=== PATIENT | female | born 1980 | race Two or more races ===

== ENCOUNTER 2023-03-23 03:04 | Emergency (ER) | payer OTHER, SELFPAY ==
[2023-03-23 03:37] VITALS: BP 98/55; PULSE 69; RESP 16; TEMP 36.4; O2SAT 99; BMI 42.1
[2023-03-23 03:38] LABS: Hematocrit 36.4 % (37.0-47.0); Mean Corpuscular Hemoglobin 28.6 pg (27.0-33.0); Mean Corpuscular Volume 86.9 fL (80.0-98.0); Platelet Count 221 X10*3/uL (160-400); Red Blood Count 4.19 X10*6/uL (4.20-5.50); White Blood Count 6.6 X10*3/uL (4.8-10.8)
[2023-03-23 03:45] LABS: Appearance Urine Clear; Color Urine Dark Yellow; Glucose Urine UA Negative (Negative); Leukocyte Esterase Urine Small (1+) (Negative); Nitrite Urine Negative (Negative); PH 5.5 (5.0-9.0); Specific Gravity - Urine >= 1.030 (1.005-1.025); UMIC TRIGGER UACC YES; Urine Blood Negative (Negative); Urine Ketones Trace mg/dL (Negative); Urine Protein Trace mg/dL (Neg-Trace)
[2023-03-23 03:52] LABS: Alanine Aminotransferase 15 U/L (0-31); Albumin Level 3.8 g/dL (3.5-5.0); Alkaline Phosphatase 90 U/L (39-117); Anion Gap 10 (12-20); Aspartate Amino Transferase 17 U/L (5-31); Bilirubin Total 0.2 mg/dL (0.0-1.0); Blood Urea Nitrogen 16 mg/dL (9-16); Calcium 8.7 mg/dL (8.4-10.2); Carbon Dioxide 22 mmol/L (22-29); Chloride 111 mmol/L (96-108); Creatinine Clr Calc Pharmacy 135.7; Estimated Glomerular Filt Rate > 60; Glucose Random 80 mg/dL (60-115); Lipase 21 U/L (8-78); Potassium 4.1 mmol/L (3.3-5.1); Sodium 139 mmol/L (135-145); Total Protein 6.5 g/dL (6.5-8.0)
[2023-03-23 04:10] LABS: Bacteria Urine None Seen (None Seen); Hyaline Casts Urine 0-2 /LPF (0-2); RBC Urine 0-2 /HPF (0-2); Squamous Epithelial Cell Urine 0-2 /HPF (0-2); UACC Culture Trigger YES; WBC Urine 0-5 /HPF (0-5)
--- OUTSIDE RECORDS SUMMARY | 2023-03-23 05:59 | XMS_ITS | Continuity of Care Document ---
Author Name Unknown Organization [facility] Address [address] [facility], [address] Floor, [address] [place] [address]- Care Team Providers Care Receptionist Clerk Name Role Phone Wil CASTREJON, Dante Robbins Primary Care Physician Encounter [facility] [place] Date(s): 02/08/22 - 03/10/22 [facility] [address], [address], [address] [place] [address]- Attending Physician: Flory Benson Admitting Physician: AdmtrFlory Referring Physician: Admtr, Ar8 Allergies, Adverse Reactions, Alerts Substance Reaction Severity Status Moderna COVID-19 Vaccine PF Active Medications albuterol 90 mcg/inh inhalation powder 2 puffs, Inhalation, Every 4 hours, PRN as needed, # 1 each, 0 Refills, Maintenance, 05/31/18 2:39:02 EST, Powder Start Date: 05/31/18 Status: Ordered Omeprazole By Mouth, Daily, 0 Refills, Maintenance, 10/05/20 7:11:00 EDT, Partial fill upon patient request ifthe prescription is for a schedule II opioid drug. Start Date: 10/05/20 Status: Ordered Topamax 25 mg oral tablet 3 tablet = 75 mg, By Mouth, 2 times a day, # 180 tablet, 5 Refills, Maintenance, 09/24/21 13:21:00 EDT, [id number], Partial fill upon patient request if the prescription is for a schedule II opioid drug., 168, cm, 09/24/21 12:49:00 ED... Start Date: 09/24/21 Stop Date: 03/23/22 Status: Ordered Wellbutrin By Mouth, 0 Refills, Maintenance, 10/05/20 7:11:00 EDT, Partial fill upon patient request if the prescription is for a schedule II opioid drug. Start Date: 10/05/20 Status: Ordered Problem List Condition Effective Dates Status Health Status Inform ant Severe obesity(Confirmed) Active Care Team Personnel Name: Wil CASTREJON , Dante Robbins Address: [address] [place] [id number] [place]
--- OUTSIDE RECORDS SUMMARY | 2023-03-23 05:59 | XMS_ITS | Continuity of Care Document ---
Author Name Unknown Organization [facility] Address Unknown Care Team Providers Care Commercial Tire Service Technician Name Role Phone Wil CASTREJON, Dante Robbins Primary Care Physician [id number] Date(s): 05/29/21 - 06/28/21 [facility] Allergies, Adverse Reactions, Alerts No Known Medication Allergies Substance Reaction Severity Status NKA Active Medications albuterol 90 mcg/inh inhalation powder 2 puffs, Inhalation, Every 4 hours, PRN as needed, # 1 each, 0 Refills, Maintenance, 05/31/18 2:39:02 EST, Powder Start Date: 05/31/18 Status: Ordered Fioricet Tablet 2 tablet, By Mouth, Every 4 hours, PRN Headache, 0 Refills, Maintenance, Tablet Start Date: 03/01/11 Status: Ordered Klonopin 2 mg oral tablet 1 tablet, By Mouth, 3 times a day, 0 Refills, Maintenance, Tablet Start Date: 03/01/11 Status: Ordered ofloxacin 0.3% otic solution See Instructions, 5 drops Ears, affected ear, 2 times a day 7 days, # 10 mL, Refills 0, Tot. Refills 0, Acute, 07/01/21 0:41:00 EST, 06/23/21 0:41:00 EST, Instructions Replace Required Details, [facility] Electronically, [facility]... Start Date: 06/23/21 Stop Date: 07/01/21 Status: Ordered ofloxacin 0.3% otic solution 5, drops, Ears, Both, 2 times a day, To affected ear only for 7 days, # 10 mL, Refills 0, Tot. Refills 0, Acute, 06/30/21 0:59:00 EST, 06/23/21 0:59:00 EST, Route to Pharmacy Electronically, [facility] #[id number] Solution, Partial fill upon pat... Start Date: 06/23/21 Stop Date: 06/30/21 Status: Ordered Omeprazole By Mouth, Daily, 0 Refills, Maintenance, 10/05/20 7:11:00 EDT, Partial fill upon patient request ifthe prescription is for a schedule II opioid drug. Start Date: 10/05/20 Status: Ordered Wellbutrin By Mouth, 0 Refills, Maintenance, 10/05/20 7:11:00 EDT, Partial fill upon patient request if the prescription is for a schedule II opioid drug. Start Date: 10/05/20 Status: Ordered
--- OUTSIDE RECORDS SUMMARY | 2023-03-23 05:59 | XMS_ITS | Continuity of Care Document ---
Author Name Unknown Organization [facility] Address [address] [place] [address]- Care Team Providers Care Personnel Security Specialist Name Role Phone Dante De La Torre MD Primary Care Physician [place] [facility] [place] - 09/09/[address] [id number] Attending Physician: Flory Benson Admitting Physician: AdmtrFlory Referring Physician: Admtr, Ar8 Allergies, Adverse Reactions, Alerts Substance Reaction Severity Status Moderna COVID-19 Vaccine PF Active Medications albuterol 90 mcg/inh inhalation powder 2 puffs, Inhalation, Every 4 hours, PRN as needed, # 1 each, 0 Refills, Maintenance, 05/31/18 2:39:02 EST, Powder Start Date: 05/31/18 Status: Ordered amitriptyline 10 mg oral tablet 10 mg, 1, tablet, By Mouth, Daily at bedtime, # 30 tablet, Refills 3, Tot. Refills 3, Maintenance, 03/31/22 12:25:00 EDT, Route to Pharmacy Electronically, [facility] #[id number], Partial fill upon patient request if the prescription is for a david... Start Date: 03/31/22 Status: Ordered Omeprazole By Mouth, Daily, 0 Refills, Maintenance, 10/05/20 7:11:00 EDT, Partial fill upon patient request ifthe prescription is for a schedule II opioid drug. Start Date: 10/05/20 Status: Ordered ondansetron 4 mg oral tablet, disintegrating 1 tablet = 4 mg, By Mouth, Every 6 hours, PRN as needed for nausea/vomiting, # 12 tablet, 0 Refills, Maintenance, 08/17/22 11:26:00 EST, DIS Tablet, [facility] #[id number], Partial fill upon patient request if the prescription is for a schedule I... Start Date: 08/17/22 Stop Date: 08/20/22 Status: Ordered SUMAtriptan 50 mg oral tablet 1 tablet = 50 mg, By Mouth, Daily, PRN for migraine headache, may repeat dose after 2 hours up to amaximum of 2, # 9 tablet, 2 Refills, Maintenance, 03/31/22 12:26:00 EDT, Tablet, [email or web address] #[id number], Partial fill upon patient request if the... Start Date: 03/31/22 Status: Ordered Wellbutrin By Mouth, 0 Refills, Maintenance, 10/05/20 7:11:00 EDT, Partial fill upon patient request if the prescription is for a schedule II opioid drug. Start Date: 10/05/20 Status: Ordered Problem List Condition Confirmation Course Effective Dates Status Health St atus Informant Severe obesity Confirmed Active Patient Care team information Care Team Personnel Name: Santo [place] RN Position: Itzel BACA RN Member Role: Primary Care Nurse Name: Wil CASTREJON, Dante Robbins Position: Reference Physician Member Role: PCP Address: Address: [address] [place] [id number]- Care Team Related Persons Name: GERRY QUINTERO Address: [place] [address] Name: JAGDISH GAN Address: home [address] [place] [address] Name: EMORY RUDOLPH Address: home [address] [place] [address]
--- OUTSIDE RECORDS SUMMARY | 2023-03-23 05:59 | XMS_ITS | Continuity of Care Document ---
Author Name Unknown Organization [facility] ter Address [address] [place] [address]- Care Team Providers Care Drive Worker Name Role Phone Not on Staff, PCP Primary Care Physician Unavail able [place] [facility] [place](s): 03/30/20 - 03/30/[address] [address]- [facility] Discharge Disposition: A-D/C Home Attending Physician: Dann Simpson DO Admitting Physician: Dann Simpson DO Referring Physician: Not on Staff, Referring MD Allergies, Adverse Reactions, Alerts No Known Medication Allergies Medications No Known Medications Results Radiology Reports * Exam Date Time Procedure Performing Provider Status 03/30/20 10:15 PM Ankle Min 3 Views Right Sridhar , Cathryn xa; Auth (Verified) Notes: (Ankle Min 3 Views Right) Reason For Exam: Pain RESULT: Ankle Min 3 Views Right Ankle Min 3 Views Right Hx of Present Illness: Pain after fall. COMPARISON: None. FINDINGS: No evidence of acute or healing fracture or bone lesion. Intact ankle mortise and talar dome. Prominent plantar calcaneal spur. Enthesopathy at the Achilles insertion. Diffuse soft tissue swelling overlying the lower extremity. IMPRESSION: No acute osseous abnormality. I have personally reviewed the images and I agree with this report. WSN: [id number] Ordering Physician: Kwaku Wilson Dictated By: Maverick Hdz DO Dictated Date/Time: 03/30/20 10:26 p Reviewed By: Alexander Castillo MD Signed By: Alexander Castillo MD Signed Date/Time: 03/30/20 10:31 pm Transcribed By: NAHUN Transcribed Date/Time: 03/30/20 10:22 pm Vital Signs Most recent to oldest [Reference Range]: 1 2 3 Oxygen Saturation [94-100 %] 100 % (03/30/20 11:30 PM) 100 % (03/30/20 9:07 PM) 99 % (03/30/20 8:52 PM) Pulse Rate [55-90 bpm] 63 bpm (03/30/20 11:30 PM) 78 bpm (03/30/20 9:07 PM) 78 bpm (03/30/20 8:52 PM) Blood Pressure [90-138/55-84 mm Hg] 106/54mm Hg (03/30/20 11:30 PM) 98/59mm Hg (03/30/20 9:07 PM) Respiratory Rate [16-30 br/min] 18 br/min (03/30/20 11:30 PM) 18 br/min (03/30/20 9:07 PM) Temperature [96.8-100.4 DegF] 98.0 DegF (03/30/20 11:30 PM) 98 DegF (03/30/20 9:07 PM) Mode of Delivery (Oxygen) Room air (03/30/20 11:30 PM) Room air (03/30/20 9:07 PM) Room air (03/30/20 8:52 PM) Blood pressure sites Arm, left (03/30/20 11:30 PM) Arm, right (03/30/20 9:07 PM) Temperature Route Oral (03/30/20 11:30 PM) Oral (03/30/20 9:07 PM) Dry Weight 117.5 kg (03/30/20 9:07 PM) Weight Obtained Via UTO (03/30/20 8:56 PM) Dry Weight Obtained Via Standing scale (03/30/20 9:07 PM) UTO (03/30/20 8:56 PM)
--- OUTSIDE RECORDS SUMMARY | 2023-03-23 05:59 | XMS_ITS | Continuity of Care Document ---
Author Name Unknown Organization [facility] ter Address [address] [place] [address]- Care Team Providers Care Electric Motor And Generator Assembler Name Role Phone Wil CASTREJON, Dante Robbins Primary Care Physician Encounter [facility] [place] Date(s): 01/29/21 - 01/29/[address] [address]- Discharge Disposition: A-D/C Walkout Attending Physician: Asim Johnson MD Admitting Physician: Asim Johnson MD Referring Physician: Not on Staff, Referring MD [...] Maintenance, Tablet Start Date: 03/01/11 Status: Ordered Omeprazole By Mouth, Daily, 0 Refills, Maintenance, 10/05/20 7:11:00 EDT, Partial fill upon patient request ifthe prescription is for a schedule II opioid drug. Start Date: 10/05/20 Status: Ordered Wellbutrin By Mouth, 0 Refills, Maintenance, 10/05/20 7:11:00 EDT, Partial fill upon patient request if the prescription is for a schedule II opioid drug. Start Date: 10/05/20 Status: Ordered Results Radiology Reports * Exam Date Time Procedure Performing Provider Status 01/29/21 7:52 AM Chest 2 Views Frontal and Lat Laverne Villa; Auth (Verified) Notes: (Chest 2 Views Frontal and Lat) Reason For Exam: Chest Pain;Other: RESULT: Chest 2 Views Frontal and Lat Chest 2 Views Frontal and Lat Hx of Present Illness: intermittent stabbing cp to L side of chest, L facial tingling for 1 hour; Reason: Other:; Chest Pain; Clinical Question(s): Other: COMPARISON: Chest radiograph dated 06/20/2020 FINDINGS: LINES AND TUBES: None. LUNGS AND PLEURA: Clear lungs. Normal pulmonary vascularity. No pleural effusion. No pneumothorax. HEART, MEDIASTINUM AND RENATO: Heart is normal in size. Normal upper mediastinal and hilar contour. BONES AND SOFT TISSUES: No acute abnormality. IMPRESSION: No acute abnormality. WSN: [id number] Ordering Physician: Mikala Young Dictated By: Annette Flores MD Dictated Date/Time: 01/29/21 7:56 am Reviewed By: Annette Flores MD Signed By: Annette Flores MD Signed Date/Time: 01/29/21 7:56 am Transcribed By: NAHUN Transcribed Date/Time: 01/29/21 7:55 am Vital Signs Most recent to oldest [Reference Range]: 1 2 Oxygen Saturation [94-100 %] 99 % (01/29/21 8:03 AM) 100 % (01/29/21 7:37 AM) Pulse Rate [55-90 bpm] 73 bpm (01/29/21 8:03 AM) 82 bpm (01/29/21 7:37 AM) Blood Pressure [90-138/55-84 mm Hg] 107/ 62mm Hg (01/29/21 8:03 AM) Respiratory Rate [16-30 br/min] 12 br/mi n *L* (01/29/21 8:03 AM) Temperature [96.8-100.4 DegF] 98.2 DegF (01/29/21 8:03 AM) Mode of Delivery (Oxygen) Room air (01/29/21 8:03 AM) Room air (01/29/21 7:37 AM) Blood pressure sites Arm, right (01/29/21 8:03 AM) Temperature Route Oral (01/29/21 8:03 AM)
--- OUTSIDE RECORDS SUMMARY | 2023-03-23 05:59 | XMS_ITS | Continuity of Care Document ---
Author Name Unknown Organization [facility] Address Unknown Care Team Providers Care Phlebotomist Associate Name Role Phone Wil CASTREJON, Dante Robbins Primary Care Physician [place] [facility] [place](s): 10/07/21 - 11/06/21 [facility] Allergies, Adverse Reactions, Alerts No Known Allergies Medications albuterol 90 mcg/inh inhalation powder 2 [...] tablet, 5 Refills, Maintenance, 09/24/21 13:21:00 EDT, [facility] #[id number], Partial fill upon patient request if the [...]
--- OUTSIDE RECORDS SUMMARY | 2023-03-23 05:59 | XMS_ITS | Continuity of Care Document ---
Author Name Unknown Organization [facility] ter Address [address] [place] [address]- Care Team Providers Care Automotive Sales Manager Name Role Phone Wil CASTREJON, Dante Robbins Primary Care Physician Encounter [facility] [place] Date(s): 10/05/20 - 10/06/[address] [address] Discharge Disposition: A-D/C Home Attending Physician: Shirley Daniel DO Admitting Physician: Tristin Mosqueda MD Referring Physician: Not on Staff, Referring [...] opioid drug. Start Date: 10/05/20 Status: Ordered Vital Signs Most recent to oldest [Reference Range]: 1 2 3 Height 168 cm (10/06/20 6:33 AM) 168 cm (10/06/20 4:34 AM) 168 cm (10/05/20 10:04 PM) Weight 117 kg (10/05/20 10:04 PM) Oxygen Saturation [94-100 %] 99 % (10/06/20 6:33 AM) 98 % (10/06/20 4:34 AM) 97 % (10/05/20 9:29 PM) Pulse Rate [55-90 bpm] 80 bpm (10/06/20 6:33 AM) 68 bpm (10/06/20 4:34 AM) 60 bpm (10/05/20 9:29 PM) Body Mass Index [18.5-24.99] 41.45 *>HHI* (10/05/20 10:04 PM) Blood Pressure [90-138/55-84 mm Hg] 102/62mm Hg (10/06/20 6:33 AM) 121/68mm Hg (10/06/20 4:34 AM) 115/60mm Hg (10/05/20 9:29 PM) Respiratory Rate [16-30 br/min] 19 br/min (10/06/20 7:58 AM) 19 br/min (10/06/20 6:33 AM) 20 br/min (10/06/20 4:34 AM) Temperature [96.8-100.4 DegF] 98.7 DegF (10/06/20 6:33 AM) 98.0 DegF (10/06/20 4:34 AM) 98.1 DegF (10/05/20 9:29 PM) Mode of Delivery (Oxygen) Room air (10/06/20 6:33 AM) Room air (10/06/20 4:34 AM) Room air (10/05/20 9:29 PM) Blood pressure sites Arm, left (10/06/20 6:33 AM) Arm, left (10/06/20 4:34 AM) Arm, left (10/05/20 9:29 PM) Temperature Route Oral (10/06/20 6:33 AM) Oral (10/06/20 4:34 AM) Oral (10/05/20 9:29 PM) Dry Weight 117 kg (10/05/20 10:04 PM) Weight Obtained Via Patient/family state d (10/05/20 10:04 PM) Dry Weight Obtained Via Patient/family s tated (10/05/20 10:04 PM)
--- OUTSIDE RECORDS SUMMARY | 2023-03-23 05:59 | XMS_ITS | Continuity of Care Document ---
Author Name Unknown Organization [facility] ter Address [address] [place] [address]- Care Team Providers Care Parts Administrator Name Role Phone Wil CASTREJON, Dante Robbins Primary Care Physician Encounter [facility] Date(s): 08/17/22 - 08/17/[address] [address]- Encounter Diagnosis Gastritis(Final) - 08/17/22 Discharge Disposition: A-D/C Home Attending Physician: Abhijit Maldonado MD Admitting Physician: Abhijit Maldonado MD Referring Physician: Not on Staff, Referring MD Allergies, Adverse Reactions, Alerts Substance Reaction Severity [...] 03/31/22 12:25:00 EDT, Route to Pharmacy Electronically, [facility] #[id number], Partial fill upon patient request if the [...] Refills, Maintenance, 08/17/22 11:26:00 EST, DIS Tablet, [facility] #[id number], Partial fill upon patient request if the prescription is for a schedule I... Start Date: 08/17/22 Stop Date: 08/20/22 Status: Ordered SUMAtriptan 50 mg oral tablet 1 tablet = 50 mg, By Mouth, Daily, PRN for migraine headache, may repeat dose after 2 hours up to amaximum of 2, # 9 tablet, 2 Refills, Maintenance, 03/31/22 12:26:00 EDT, Tablet, [facility] #[id number], Partial fill upon patient request if the... Start Date: 03/31/22 Status: Ordered Wellbutrin By Mouth, 0 Refills, Maintenance, 10/05/20 7:11:00 EDT, Partial fill upon patient request if the prescription is for a schedule II opioid drug. Start Date: 10/05/20 Status: Ordered Problem List Condition Confirmation Course Effective Dates Status Health St atus Informant Severe obesity Confirmed Active Results Radiology Reports * Exam Date Time Procedure Performing Provider Status 08/17/22 10:57 AM US RUQ Lexi Link; Auth ( Verified) Notes: (US RUQ) Reason For Exam: Abdominal Pain;Other: RESULT: US RUQ US RUQ Hx of Present Illness: epigastric pain x 2 hours with N V. no relief from Omeprazole or drinking milk; Reason: Other:; Abdominal Pain; Clinical Question(s): Cholecystitis COMPARISON: Ultrasound 02/20/2022, CT abdomen and pelvis 02/20/2022 FINDINGS: Liver: Diffusely mild echogenic parenchyma. A 1.4 x 1.3 x 0.9 cm simple cyst noted in the right lobe. Few additional subcentimeter cystic lesion noted. Smooth hepatic contour. Main portal vein patentwith normal hepatopetal direction of flow. Gallbladder: Contracted gallbladder, limits assessment. No gallstones. Normal wall thickness. A 0.1cm echogenic focus with a comet tail artifact, most likely representing a focal adenomyoma. No pericholecystic fluid. Negative Robles sign. Biliary Tree: No intrahepatic or extrahepatic bile duct dilation is identified. Common duct measures: 0.4 cm. Pancreas: No abnormality in the visualized portions of the pancreas. Right kidney: 11.2 cm in length. Normal parenchymal echotexture and thickness. No hydronephrosis, stone or mass. IMPRESSION: 1. Contracted gallbladder, with the focus of echogenicity with comet tail artifact, consistent withminimal adenomyomatosis. No evidence of gallstone or cholecystitis. 2. Mildly echogenic liver likely representing hepatic steatosis. 3. A 1.4 cm simple cyst in the right liver lobe. I have personally reviewed the images and I agree with this report. WSN: [id number] Ordering Physician: Abhijit Maldonado Dictated By: Ashu Elaine MD Dictated Date/Time: 08/17/22 11:11 a Reviewed By: Santo Howell MD Signed By: Santo Howell MD Signed Date/Time: 08/17/22 11:16 am Transcribed By: NAHUN Transcribed Date/Time: 08/17/22 11:07 am Vital Signs Most recent to oldest [Reference Range]: 1 2 3 Oxygen Saturation [94-100 %] 98 % (08/17/22 12:12 PM) 99 % (08/17/22 7:46 AM) 98 % (08/17/22 7:32 AM) Pulse Rate [55-90 bpm] 70 bpm (08/17/22 12:12 PM) 65 bpm (08/17/22 7:46 AM) 79 bpm (08/17/22 7:32 AM) Blood Pressure [90-138/55-84 mm Hg] 107/73mm Hg (08/17/22 12:12 PM) 110/47mm Hg (08/17/22 7:46 AM) Respiratory Rate [16-30 br/min] 18 br/min (08/17/22 12:12 PM) 18 br/min (08/17/22 7:46 AM) Temperature [96.8-100.4 DegF] 97.5 DegF (08/17/22 12:12 PM) 97.7 DegF (08/17/22 7:46 AM) Mode of Delivery (Oxygen) Room air (08/17/22 12:12 PM) Room air (08/17/22 7:46 AM) Room air (08/17/22 7:32 AM) Temperature Route Oral (08/17/22 12:12 PM) Oral (08/17/22 7:46 AM) EKG study * Event Display: ECG 12-Lead Authored Date: Please click on pdf link to open report * Event Display: ECG 12-Lead Authored Date: Ventricular Rate: 67 BPM Atrial Rate: 67 BPM P-R Interval: 146 ms QRS Duration: 92 ms Q-T Interval: 404 ms QTC Calculation(Bazett): 426 ms P [place]: 25 degrees R [place]: 23 degrees T [place]: 35 degrees Normal sinus rhythm Normal ECG When compared with ECG of 20-FEB-2022 04:13, No significant change was found Confirmed by MINDY ELDER MD ([id number]) on 08/17/2022 9:13:47 AM [place]: MINDY ELDER MD Note * Abhijit Maldonado MD: PERFORM Event Display: Patient Education Leaflets Authored Date: Gastritis or Ulcer, No Antibiotic Treatment ?? [id number] Gastritis or Ulcer, No Antibiotic Treatment Gastritis??is irritation and inflammation of the stomach lining. This means the lining is red and swollen. It can cause shallow sores in the stomach lining called erosions. An??ulcer??is a deeper open sore in the lining of the stomach. It may also occur in the first part of the small intestine (duodenum).??The causes and symptoms of gastritis and ulcers are very similar. Causes and risk factors for both problems can include: ??? Long-term use of nonsteroidal anti-inflammatory drugs (NSAIDs) such as aspirin and ibuprofen ??? H. pylori??bacteria infection ??? Tobacco use ??? Alcohol use ??? Certain other conditions such asimmune disorders, certain medicines such as high-dose iron supplements, and street drugs such as cocaine Symptoms for both problems can include: ??? Dull or burning pain in the upper part of the belly ??? Loss of appetite ??? Heartburn or upsetstomach ??? Frequent burping ??? Bloated feeling ??? Nausea with or without vomiting You likely had an assessment to help find the exact cause and extent of your problem. This may haveincluded a health history, exam, and certain tests. Results showed that your problem is not from ??H. pylori??infection. For this reason, you don't need antibiotics as part of your treatment. Whether your problem is gastritis or an ulcer, you will still need to take other medicines. You will also need to follow instructions to help reduce stomach irritation so your stomach can heal.?? Home care ??? Take any medicines you???re prescribed exactly as directed. Common medicines used to treat gastritis include: o Antacids.??These help neutralize the normal acids in your stomach. o Proton pump inhibitors.??These block your stomach from making any acid. o H2??blockers. These reduce theamount of acid your stomach makes. o Bismuth subsalicylate.??This helps protect the lining of your stomach from acid. ??? Don't take any NSAIDs during your treatment. If you take NSAID to help treat other health problems, tell your healthcare provider. They may need to adjust your medicine plan or change the dosage. ??? Don???t use tobacco. Also don???t drink alcohol. These products can increase the amount of acid your stomach makes. This can delay healing. It can also worsen symptoms. ?? Follow-up care Follow up with your healthcare provider, or as advised. In some cases, you may need more tests. ?? When to seek medical advice Call your healthcare provider right away if any of these occur: ??? Fever of 100.4??F (38??C) or higher, or as directed by your healthcare??provider ??? Stomach pain that gets worse or moves to the lower right part of belly ??? Extreme tiredness (fatigue) ??? Weakness or dizziness ??? Continued weight loss ??? Frequent vomiting,??blood in your vomit, or coffee-groundlike substance in your vomit ??? Black, tarry, or bloody stools ??? Symptoms get worse or you have new symptoms ?? Call 911 Call 911??if any of these occur: ??? Chest pain appears or worsens, or spreads to the back, neck, shoulder, or arm ??? Unusually fast heart rate ??? Trouble breathing or swallowing ??? Confusion ??? Extreme drowsiness or trouble waking up ??? Fainting ??? Large amounts of blood present in vomit or stool ?? Last Reviewed Date: 2021 ?? [id number] [employer]. All rights reserved. This information is not intended as a substitute for professional medical care. Always follow your healthcare professional's instructions. ?? * BHSPowerscribe , CIS S: TRANSCRIBE Ashu Elaine MD: Santo Jones MD: VERIFY Event Display: Result: Authored Date: [id number] US RUQ Hx of Present Illness: epigastric pain x 2 hours with N V. no relief from Omeprazole or drinking milk; Reason: Other:; Abdominal Pain; Clinical Question(s): Cholecystitis COMPARISON: Ultrasound 02/20/2022, CT abdomen and pelvis 02/20/2022 FINDINGS: Liver: Diffusely mild echogenic parenchyma. A 1.4 x 1.3 x 0.9 cm simple cyst noted in the right lobe. Few additional subcentimeter cystic lesion noted. Smooth hepatic contour. Main portal vein patentwith normal hepatopetal direction of flow. Gallbladder: Contracted gallbladder, limits assessment. No gallstones. Normal wall thickness. A 0.1cm echogenic focus with a comet tail artifact, most likely representing a focal adenomyoma. No pericholecystic fluid. Negative Robles sign. Biliary Tree: No intrahepatic or extrahepatic bile duct dilation is identified. Common duct measures: 0.4 cm. Pancreas: No abnormality in the visualized portions of the pancreas. Right kidney: 11.2 cm in length. Normal parenchymal echotexture and thickness. No hydronephrosis, stone or mass. IMPRESSION: 1. Contracted gallbladder, with the focus of echogenicity with comet tail artifact, consistent withminimal adenomyomatosis. No evidence of gallstone or cholecystitis. 2. Mildly echogenic liver likely representing hepatic steatosis. 3. A 1.4 cm simple cyst in the right liver lobe. I have personally reviewed the images and I agree with this report. WSN: [id number] Ordering Physician: Abhijit Maldonado Dictated By: Ashu Elaine MD Dictated Date/Time: 08/17/22 11:11 a Reviewed By: Santo Howell MD Signed By: Santo Howell MD Signed Date/Time: 08/17/22 11:16 am Transcribed By: NAHUN Transcribed Date/Time: 08/17/22 11:07 am Patient Care team information Care Team Personnel Name: Santo Louis RN Position: [facility] RN Member Role: Primary Care Nurse Name: Wil CASTREJON , Dante Robbins Position: Reference Physician Member Role: PCP Address: Address: [address] [place] [address]- [place] Name: *[facility], ED Attending Position: [facility] ED Attendings Patient Name: Abhijit Maldonado MD Position: [facility] ED Medicine MD Member Role: Admitting Physician Address: Address: [address] [place] [address] Department of [place] [address]- Name: Jyotsna Oakley RN Position: [facility] ED RN W/OE and Tasks Member Role: Patient Care Provider Name: Lilliana Monroy Position: [facility] ED TA [facility] Member Role: Patient Care Provider Care Team Related Persons Name: GERRY QUINTERO Address: [place] [address] Name: JAGDISH GAN Address: home [address] [place] [address] Name: EMORY RUDOLPH Address: home [address] [place] [address]
--- OUTSIDE RECORDS SUMMARY | 2023-03-23 05:59 | XMS_ITS | Continuity of Care Document ---
Author Name Unknown Organization [facility] Address [address] [place] [address]- Care Team Providers Care Turfgrass Management Professor Name Role Phone Dante De La Torre MD Primary Care Physician Encounter [facility] [place] Date(s): 04/02/22 - 05/08/[address] [address] Attending Physician: Dante De La Torre MD Admitting Physician: Dante De La Torre MD Referring Physician: Dante De La Torre MD Allergies, Adverse Reactions, Alerts Substance Reaction [...] 03/31/22 12:25:00 EDT, Route to Pharmacy Electronically, [facility] #[id number], Partial fill upon patient request if the prescription is for a david... Start Date: 03/31/22 Status: Ordered Omeprazole By Mouth, Daily, 0 Refills, Maintenance, 10/05/20 7:11:00 EDT, Partial fill upon patient request ifthe prescription is for a schedule II opioid drug. Start Date: 10/05/20 Status: Ordered SUMAtriptan 50 mg oral tablet 1 tablet = 50 mg, By Mouth, Daily, PRN for migraine headache, may repeat dose after 2 hours up to amaximum of 2, # 9 tablet, 2 Refills, Maintenance, 03/31/22 12:26:00 EDT, Tablet, [facility] #[id number], Partial fill upon patient request if the... [...] Care team information Care Team Personnel Name: Heriberto COX, Santo Position: [facility] RN Member Role: Primary Care Nurse Name: Wil CASTREJON , Dante Robbins Position: Reference Physician Member Role: PCP Address: Address: [address] [place] [address]- Care Team Related Persons Name: GERRY QUINTERO Address: [place] [address] Name: JAGDISH GAN Address: home [address] [place] [address] Name: EMORY RUDOLPH Address: home [address] [place] [address]
--- OUTSIDE RECORDS SUMMARY | 2023-03-23 05:59 | XMS_ITS | Continuity of Care Document ---
Author Name Unknown Organization [facility] ter Address [address] [place] [address]- Care Team Providers Care Welder Metal [employer] Name Role Phone Wil CASTREJON, Dante Robbins Primary Care Physician Encounter [facility] [place] [facility] Date(s): 12/03/19 - 12/03/[address] [address]- [facility] Encounter Diagnosis Atypical chest pain(Final) - 12/03/19 Discharge Disposition: A-D/C Home Attending Physician: Cathy Manriquez MD Admitting Physician: Cathy Manriquez MD Referring Physician: Not on Staff, Referring MD Allergies, Adverse Reactions, Alerts Substance Reaction Severity Status NKA Active Medications albuterol 90 mcg/inh inhalation powder 2 puffs, Inhalation, Every 4 hours, PRN as needed, # 1 each, 0 Refills, Maintenance, 05/31/18 2:39:02 EST, Powder Start Date: 05/31/18 Status: Ordered Colace sodium 100 mg oral capsule 1 capsule = 100 mg, By Mouth, 2 times a day, PRN for constipation, # 6 capsule, 0 Refills, Maintenance, 01/24/15 22:17:54, Capsule Start Date: 01/24/15 Stop Date: 01/27/15 Status: Ordered Fioricet Tablet 2 tablet, By Mouth, Every 4 hours, PRN Headache, 0 Refills, Maintenance, Tablet Start Date: 03/01/11 Status: Ordered ibuprofen 600 mg oral tablet 1 tablet = 600 mg, By Mouth, 4 times a day, # 20 tablet, 0 Refills, Maintenance Start Date: 05/14/12 Stop Date: 05/19/12 Status: Ordered ibuprofen 600 mg oral tablet 600 mg, 1, tablet, By Mouth, Every 6 to 8 hours, with food or milk, # 24 tablet, Refills 0, Tot. Refills 0, Maintenance, 01/04/18 13:32:39 EDT, Print Requisition Start Date: 01/04/18 Status: Ordered Klonopin 2 mg oral tablet 1 tablet, By Mouth, 3 times a day, 0 Refills, Maintenance, Tablet Start Date: 03/01/11 Status: Ordered oxyCODONE 5 mg oral tablet 5 mg, 1, tablet, By Mouth, Every 6 hours, PRN, # 5 tablet, Refills 0, Tot. Refills 0, Maintenance, for pain, 04/14/18 9:19:00 EDT, Print Requisition Start Date: 04/14/18 Status: Ordered Percocet-5/325 325 mg-5 mg oral tablet 1 tablet, By Mouth, Every 6 hours, PRN Pain , Moderate, # 8 tablet, 0 Refills, Maintenance Start Date: 04/20/12 Stop Date: 04/22/12 Status: Ordered Percocet-5/325 325 mg-5 mg oral tablet 1, tablet, By Mouth, Every 4 hours, PRN, # 10 tablet, Refills 0, Tot. Refills 0, Maintenance, Pain,02/08/16 14:11:08, Print Requisition Start Date: 02/08/16 Status: Ordered Percocet-5/325 325 mg-5 mg oral tablet 1 tablet, By Mouth, Every 6 hours, PRN Pain , Moderate, # 8 tablet, 0 Refills, Maintenance, 01/24/15 22:18:06 Start Date: 01/24/15 Stop Date: 01/26/15 Status: Ordered Zofran 4 mg oral tablet 1 tablet = 4 mg, By Mouth, Every 8 hours, PRN as needed for nausea/vomiting, # 10 tablet, 0 Refills, Maintenance, 04/14/18 9:19:22 EDT, Tablet Start Date: 04/14/18 Status: Ordered Results Radiology Reports * Exam Date Time Procedure Performing Provider Status 12/03/19 3:15 PM Chest Portable Cortney Duran; Michelet ( Verified) Notes: (Chest Portable) Reason For Exam: Shortness of Breath RESULT: Chest Portable AP upright portable chest dated December 03, 2019 1503 hours. Comparison films are from January 20172018. HISTORY: Shortness of breath. FINDINGS: The cardiac silhouette is within normal limits for size. Hilar and mediastinal structuresare unremarkable. No airspace infiltrate or pleural effusion is identified. There is a mild convex right thoracolumbar scoliosis. IMPRESSION: No evidence of acute pulmonary disease. No significant interval change. Examination [address]. Thank you for allowing me to participate in the care of this patient. WSN: [id number] Ordering Physician: Cathy Manriquez Dictated By: Jh Richard MD Dictated Date/Time: 12/03/19 3:23 pm Reviewed By: hJ Richard MD Signed By: Jh Richard MD Signed Date/Time: 12/03/19 3:23 pm Transcribed By: NAHUN Transcribed Date/Time: 12/03/19 3:22 pm Vital Signs Most recent to oldest [Reference Range]: 1 2 Oxygen Saturation [94-100 %] 96 % (12/03/19 3:01 PM) 100 % (12/03/19 2:25 PM) Pulse Rate [55-90 bpm] 83 bpm (12/03/19 3:01 PM) 80 bpm (12/03/19 2:25 PM) Blood Pressure [90-138/55-84 mm Hg] 126/ 73mm Hg (12/03/19 3:01 PM) Respiratory Rate [16-30 br/min] 18 br/mi n (12/03/19 3:01 PM) Temperature [96.8-100.4 DegF] 98.8 DegF (12/03/19 3:01 PM) Mode of Delivery (Oxygen) Room air (12/03/19 3:01 PM) Room air (12/03/19 2:25 PM) Blood pressure sites Arm, left (12/03/19 3:01 PM) Temperature Route Oral (12/03/19 3:01 PM)
--- OUTSIDE RECORDS SUMMARY | 2023-03-23 05:59 | XMS_ITS | Continuity of Care Document ---
Author Name Unknown Organization [facility] Address Unknown Care Team Providers Care Insurance Risk Analyst Name Role Phone Wil CASTREJON, Dante Robbins Primary Care Physician [phone] Encounter [facility] [place] Date(s): 08/11/21 - 09/10/21 [facility] Allergies, Adverse Reactions, Alerts No [...] Status: Ordered Topamax 25 mg oral tablet See Instructions, 1 tablet By Mouth bedtime x 3 days, then 2 tabs hs, # 60 tablet, 3 Refills, Maintenance, 08/20/21 15:49:00 EST, [facility] #[id number], Partial fill upon patient request if theprescription is for a schedule II opioid drug., 168... Start Date: 08/20/21 Status: Ordered Wellbutrin By Mouth, 0 Refills, Maintenance, 10/05/20 7:11:00 EDT, Partial fill upon patient request if the prescription is for a schedule II opioid drug. Start Date: 10/05/20 Status: Ordered
--- OUTSIDE RECORDS SUMMARY | 2023-03-23 05:59 | XMS_ITS | Continuity of Care Document ---
Author Name Unknown Organization [facility] ter Address [address] [place] [address]- Care Team Providers Care Construction Equipment Technician Name Role Phone Wil CASTREJON, Dante Robbins Primary Care Physician Encounter [facility] [place] Date(s): 09/29/21 - 09/29/[address] [address]- Discharge Disposition: A-D/C Walkout Attending Physician: Not on Staff, Attending MD Admitting Physician: Not on Staff, Admitting MD Referring Physician: Not on Staff, Referring MD Allergies, Adverse Reactions, Alerts No Known Allergies [...] tablet, 5 Refills, Maintenance, 09/24/21 13:21:00 EDT, [facility] #[id number], Partial fill upon patient request if the [...] Health Status Inform ant Severe obesity(Confirmed) Active Results Radiology Reports * Exam Date Time Procedure Performing Provider Status 09/29/21 2:58 AM Chest 2 Views Frontal and Lat Sandee Sykes; Auth (Verified) Notes: (Chest 2 Views Frontal and Lat) Reason For Exam: Chest Pain;Other: RESULT: Chest 2 Views Frontal and Lat Chest 2 Views Frontal and Lat INDICATION: Shortness of breath. COMPARISON: 01/29/2021. FINDINGS: LINES AND TUBES: None. LUNGS AND PLEURA: Clear lungs. Normal pulmonary vascularity. No pleural effusion. No pneumothorax. HEART, MEDIASTINUM AND RENATO: Heart is normal in size. Normal upper mediastinal and hilar contour. BONES AND SOFT TISSUES: No acute abnormality. Right sided nipple jewelry. IMPRESSION: No acute cardiopulmonary process. I have personally reviewed the images and I agree with this report. WSN: [id number] Ordering Physician: Kurt Vu Dictated By: Lazarus Phillip MD Dictated Date/Time: 09/29/21 8:15 am Reviewed By: Dung Arroyo MD, V Signed By: Dung Arroyo MD, V Signed Date/Time: 09/29/21 8:20 am Transcribed By: NAHUN Transcribed Date/Time: 09/29/21 7:49 am Vital Signs Most recent to oldest [Reference Range]: 1 2 Height 168 cm (09/29/21 2:09 AM) Weight 118 kg (09/29/21 2:09 AM) Oxygen Saturation [94-100 %] 100 % (09/29/21 1:51 AM) 100 % (09/29/21 1:45 AM) Pulse Rate [55-90 bpm] 75 bpm (09/29/21 1:51 AM) 80 bpm (09/29/21 1:45 AM) Blood Pressure [90-138/55-84 mm Hg] 119/ 59mm Hg (09/29/21 1:51 AM) Respiratory Rate [16-30 br/min] 18 br/mi n (09/29/21 1:51 AM) Temperature [96.8-100.4 DegF] 97.8 DegF (09/29/21 1:51 AM) Mode of Delivery (Oxygen) Room air (09/29/21 1:51 AM) Room air (09/29/21 1:45 AM) Blood pressure sites Arm, right (09/29/21 1:51 AM) Temperature Route Oral (09/29/21 1:51 AM) Weight Obtained Via Patient/family state d (09/29/21 2:09 AM)
--- OUTSIDE RECORDS SUMMARY | 2023-03-23 05:59 | XMS_ITS | Continuity of Care Document ---
Author Name Unknown Organization [facility] Address [address] [facility], [address] Floor, [address] [place] [address]- Care Team Providers Care Bakery [employer]ship Name Role Phone Wil CASTREJON, Dante Robbins Primary Care Physician [phone] Encounter [facility] Date(s): 07/12/22 - 08/11/22 [facility] [address], [address], [address] [place] [id number] Attending Physician: Flory Benson Admitting Physician: Admtr, Flory Referring Physician: Admtr, Ar8 Allergies, Adverse Reactions, [...] 03/31/22 12:25:00 EDT, Route to Pharmacy Electronically, [facility] #[id number], Partial fill upon patient request if the [...] 2 Refills, Maintenance, 03/31/22 12:26:00 EDT, Tablet, [facility] #[id number], Partial fill upon patient request if the... [...] Reference Physician Member Role: PCP Address: Address: [address] [place] [address]- Care Team Related Persons Name: GERRY QUINTERO Address: [place] [address] Name: JAGDISH GAN Address: home [address] [place] [address] Name: EMORY RUDOLPH Address: home [address] [place] [address]
--- OUTSIDE RECORDS SUMMARY | 2023-03-23 05:59 | XMS_ITS | Continuity of Care Document ---
Author Name Unknown Organization [facility] Address [address] [place] [address]- Care Team Providers Care Midwife Name Role Phone Dante De La Torre MD Primary Care Physician [phone] Encounter [facility] [place] Date(s): 07/20/22 - 08/23/[address] [address]- Encounter Diagnosis Sprain of unspecified site of right knee, subsequent encounter(Final) - Discharge Disposition: A-D/C Home Attending Physician: Dante De La Torre MD [...] 03/31/22 12:25:00 EDT, Route to Pharmacy Electronically, [facility] #[id number], Partial fill upon patient request if the [...] Refills, Maintenance, 08/17/22 11:26:00 EST, DIS Tablet, [facility] #[id number], Partial fill upon patient request if the prescription is for a schedule I... Start Date: 08/17/22 Stop Date: 08/20/22 Status: Ordered SUMAtriptan 50 mg oral tablet 1 tablet = 50 mg, By Mouth, Daily, PRN for migraine headache, may repeat dose after 2 hours up to amaximum of 2, # 9 tablet, 2 Refills, Maintenance, 03/31/22 12:26:00 EDT, Tablet, [facility] #[id number], Partial fill upon patient request if the... [...] Reference Physician Member Role: PCP Address: Address: [address] [place] [address]- Care Team Related Persons Name: GERRY QUINTERO Address: [place] [address] Name: JAGDISH GAN Address: home [address] [place] [address] Name: EMORY RUDOLPH Address: home [address] [place] [address]
--- OUTSIDE RECORDS SUMMARY | 2023-03-23 05:59 | XMS_ITS | Continuity of Care Document ---
Author Name Unknown Organization [facility] Address Unknown Care Team Providers Care Certified Credit Counselor Name Role Phone Wil CASTREJON, Dante Robbins Primary Care Physician [phone] [place] [facility] [place] Date(s): 07/23/21 - 08/22/21 [facility] Allergies, Adverse Reactions, Alerts No [...] tablet, 3 Refills, Maintenance, 08/20/21 15:49:00 EST, [facility] #[id number], Partial fill upon patient request if theprescription is for a schedule II opioid drug., 168... Start Date: 08/20/21 Status: Ordered Wellbutrin By Mouth, 0 Refills, Maintenance, 10/05/20 7:11:00 EDT, Partial fill upon patient request if the prescription is for a schedule II opioid drug. Start Date: 10/05/20 Status: Ordered
--- OUTSIDE RECORDS SUMMARY | 2023-03-23 05:59 | XMS_ITS | Continuity of Care Document ---
Author Name Unknown Organization [facility] ter Address [address] [place] [address]- Care Team Providers Care Zinc Miner Blasting Name Role Phone Wil CASTREJON, Dante Robbins Primary Care Physician [phone] Encounter [facility] [place] Date(s): 01/06/21 - 01/06/[address] [address]- Discharge Disposition: A-D/C Walkout Attending Physician: Not [...]
--- OUTSIDE RECORDS SUMMARY | 2023-03-23 05:59 | XMS_ITS | Continuity of Care Document ---
Author Name Unknown Organization [facility] Address Unknown Care Team Providers Care Enterostomal Therapy Nurse Name Role Phone Wil CASTREJON, Dante Robbins Primary Care Physician Encounter [facility] Date(s): 07/14/21 - 08/13/21 [facility] Allergies, Adverse Reactions, Alerts No Known Allergies Medications albuterol 90 mcg/inh inhalation powder 2 puffs, Inhalation, Every 4 hours, PRN as needed, # 1 each, 0 Refills, Maintenance, 05/31/18 2:39:02 EST, Powder Start Date: 05/31/18 Status: Ordered Depakote 500 mg oral enteric coated tablet 1 tablet = 500 mg, By Mouth, 2 times a day, # 60 tablet, 2 Refills, Maintenance, 08/11/21 12:30:00 EST, EC Tablet, [facility] #[id number], Partial fill upon patient request if the prescription is for a schedule II opioid drug., 168, cm, 10/06/20... Start Date: 08/11/21 Status: Ordered Omeprazole By Mouth, Daily, 0 [...]
--- OUTSIDE RECORDS SUMMARY | 2023-03-23 05:59 | XMS_ITS | Continuity of Care Document ---
Author Name Unknown Organization [facility] Address [address] [place] [address]- Care Team Providers Care Power Generation Technician Name Role Phone Wil CASTREJON, Dante Robbins Primary Care Physician Encounter [facility] [place] Date(s): 06/08/22 - 07/08/[address] [address] Attending Physician: AdmtrFlory Admitting Physician: Admtr, Ar8 Referring Physician: Admtr, Ar8 Allergies, Adverse Reactions, [...] 03/31/22 12:25:00 EDT, [id number], Partial fill upon patient request if the [...] 2 Refills, Maintenance, 03/31/22 12:26:00 EDT, Tablet, [email or web address][id number], Partial fill upon patient request if the... [...] Team Personnel Name: Heriberto COX, Santo Position: S RN Member Role: Primary Care Nurse Name: Wil CASTREJON , Dante Robbins Position: Reference Physician Member Role: PCP Address: Address: [address] [place] [address]- Care Team Related Persons Name: GERRY QUINTERO Address: [place] [address] Name: JAGDISH GAN Address: home [address] [place] [address] Name: EMORY RUDOLPH Address: home [address] [place] [address]
--- OUTSIDE RECORDS SUMMARY | 2023-03-23 05:59 | XMS_ITS | Continuity of Care Document ---
Author Name Unknown Organization [facility] Address Unknown Care Team Providers Care Rental Boats Caretaker Name Role Phone Wil CASTREJON, Dante Robbins Primary Care Physician [phone] Encounter [facility] [place] Date(s): 08/17/21 - 09/16/21 [facility] Allergies, Adverse Reactions, Alerts [...] drug. Start Date: 10/05/20 Status: Ordered Topamax 50 mg oral tablet 1 tablet = 50 mg, By Mouth, 2 times a day, # 60 tablet, 4 Refills, Maintenance, 09/14/21 11:27:00 EDT, Tablet, [facility] #[id number], Partial fill upon patient request if the prescription is for a schedule II opioid drug., 168, cm, 10/06/20 6:33... Start Date: 09/14/21 Status: Ordered Wellbutrin By Mouth, 0 Refills, Maintenance, 10/05/20 7:11:00 EDT, Partial fill upon patient request if the prescription is for a schedule II opioid drug. Start Date: 10/05/20 Status: Ordered
--- OUTSIDE RECORDS SUMMARY | 2023-03-23 05:59 | XMS_ITS | Continuity of Care Document ---
Author Name Unknown Organization [facility] Address Unknown Care Team Providers Care Flyer Repairer Name Role Phone Wil CASTREJON, Dante Robbins Primary Care Physician [phone] Encounter [facility] [place] Date(s): 09/24/21 - 10/24/21 [facility] Allergies, Adverse Reactions, Alerts No [...] tablet, 5 Refills, Maintenance, 09/24/21 13:21:00 EDT, [facility] #[id number], Partial fill upon patient request if the [...]
--- OUTSIDE RECORDS SUMMARY | 2023-03-23 06:00 | XMS_ITS | Continuity of Care Document ---
Author Name Unknown Organization [facility] Address Unknown Care Team Providers Care Director Safety Name Role Phone Wil CASTREJON, Dante Robbins Primary Care Physician [place] [facility] [place] Date(s): 08/12/21 - 09/11/21 [facility] Allergies, Adverse Reactions, Alerts [...] tablet, 3 Refills, Maintenance, 08/20/21 15:49:00 EST, [facility] #[id number], Partial fill upon patient request if theprescription is for a schedule II opioid drug., 168... Start Date: 08/20/21 Status: Ordered Wellbutrin By Mouth, 0 Refills, Maintenance, 10/05/20 7:11:00 EDT, Partial fill upon patient request if the prescription is for a schedule II opioid drug. Start Date: 10/05/20 Status: Ordered
--- OUTSIDE RECORDS SUMMARY | 2023-03-23 06:00 | XMS_ITS | Continuity of Care Document ---
Author Name Unknown Organization [facility] ter Address [address] [place] [address]- Care Team Providers Care Social Sciences Research Scientist Name Role Phone Wil CASTREJON, Dante Robbins Primary Care Physician [place] [facility] [place] [id number] Date(s): 02/20/22 - 02/20/[address] [address]- Discharge Disposition: A-D/C Home Attending Physician: Charmaine Ferro MD Admitting Physician: Charmaine Ferro MD Referring Physician: Not on Staff, Referring MD Allergies, Adverse Reactions, Alerts Substance Reaction Severity Status Moderna COVID-19 Vaccine PF Active Medications albuterol 90 mcg/inh inhalation powder 2 puffs, Inhalation, Every 4 hours, PRN as needed, # 1 each, 0 Refills, Maintenance, 05/31/18 2:39:02 EST, Powder Start Date: 05/31/18 Status: Ordered MorPHINE Inj 4 mg, Injection, IV Push Slowly, Once, STAT, 02/20/22 7:24:00 EDT, Stop date 02/20/22 7:24:00 EDT Start Date: 02/20/22 Stop Date: 02/20/22 Status: Completed Omeprazole By Mouth, Daily, 0 Refills, Maintenance, 10/05/20 7:11:00 EDT, Partial fill upon patient request ifthe prescription is for a schedule II opioid drug. Start Date: 10/05/20 Status: Ordered ondansetron 4 mg oral tablet, disintegrating 1 tablet = 4 mg, By Mouth, Every 8 hours, PRN as needed for nausea/vomiting, for 3 days, # 10 tablet, 0 Refills, Acute 02/23/22 10:48:00 EDT, 02/20/22 10:48:00 EDT, DIS Tablet, [facility] #[id number], Partial fill upon patient request if the pres... Start Date: 02/20/22 Stop Date: 02/23/22 Status: Ordered Topamax 25 mg oral tablet 3 tablet = 75 mg, By Mouth, 2 times a day, # 180 tablet, 5 Refills, Maintenance, 09/24/21 13:21:00 EDT, [facility] #[id number], Partial fill upon patient request if the [...] Exam Date Time Procedure Performing Provider Status 02/20/22 10:04 AM Chest 2 Views Frontal and Lat Titobian Cristiana; Auth (Verified) Notes: (Chest 2 Views Frontal and Lat) Reason For Exam: Shortness of Breath RESULT: Chest 2 Views Frontal and Lat Chest 2 Views Frontal and Lat Hx of Present Illness: abd pain began earlier and getting worse; Reason: Shortness of Breath; Clinical Question(s): CHF; COMPARISON: 02/20/2022. FINDINGS: LINES AND TUBES: None. LUNGS AND PLEURA: Clear lungs. Normal pulmonary vascularity. No pleural effusion. No pneumothorax. HEART, MEDIASTINUM AND RENATO: Heart is normal in size. Normal upper mediastinal and hilar contour. BONES AND SOFT TISSUES: No acute abnormality. IMPRESSION: No acute abnormality. WSN: [id number] Ordering Physician: Asim Bowman Dictated By: Claudio Moreno MD Dictated Date/Time: 02/20/22 10:29 a Reviewed By: Claudio Moreno MD Signed By: Claudio Moreno MD Signed Date/Time: 02/20/22 10:29 am Transcribed By: NAHUN Transcribed Date/Time: 02/20/22 10:28 am * Exam Date Time Procedure Performing Provider Status 02/20/22 8:12 AM Chest Portable McGorryKyleigh; Auth (Verified) Notes: (Chest Portable) Reason For Exam: Shortness of Breath RESULT: Chest Portable Chest Portable Hx of Present Illness: abd pain began earlier and getting worse; Reason: Shortness of Breath; Clinical Question(s): CHF COMPARISON: 11/20/2021 FINDINGS: LINES AND TUBES: None. LUNGS AND PLEURA: Mild hazy opacity in left greater than right lung bases with partial obscuration of the left lateral heart border. No pleural effusion. No pneumothorax. HEART, MEDIASTINUM AND RENATO: Heart is normal in size. Normal upper mediastinal and hilar contour. BONES AND SOFT TISSUES: No acute abnormality. IMPRESSION: Mild hazy opacity in left greater than right lung bases with partial obscuration of the left lateral heart border could suggest consolidation. WSN: [id number] Ordering Physician: Asim Bowman Dictated By: Santo Flores MD Dictated Date/Time: 02/20/22 8:20 am Reviewed By: Santo Flores MD Signed By: Santo Flores MD Signed Date/Time: 02/20/22 8:20 am Transcribed By: NAHUN Transcribed Date/Time: 02/20/22 8:18 am Vital Signs Most recent to oldest [Reference Range]: 1 2 3 Height 167.64 cm (02/20/22 10:16 AM) 167.64 cm (02/20/22 4:07 AM) Weight 123 kg (02/20/22 10:16 AM) 123 kg (02/20/22 4:07 AM) Oxygen Saturation [94-100 %] 100 % (02/20/22 10:16 AM) 100 % (02/20/22 7:37 AM) 99 % (02/20/22 4:07 AM) Pulse Rate [55-90 bpm] 60 bpm (02/20/22 10:16 AM) 70 bpm (02/20/22 7:37 AM) 77 bpm (02/20/22 4:07 AM) Body Mass Index [18.5-24.99] 43.77 *>HHI* (02/20/22 10:16 AM) 43.77 *>HHI* (02/20/22 4:07 AM) Blood Pressure [90-138/55-84 mm Hg] 99/61mm Hg (02/20/22 10:16 AM) 101/56mm Hg (02/20/22 7:37 AM) 105/69mm Hg (02/20/22 4:07 AM) Respiratory Rate [16-30 br/min] 16 br/min (02/20/22 10:16 AM) 16 br/min (02/20/22 8:04 AM) 16 br/min (02/20/22 7:37 AM) Temperature [96.8-100.4 DegF] 97.7 DegF (02/20/22 4:07 AM) Mode of Delivery (Oxygen) Room air (02/20/22 10:16 AM) Room air (02/20/22 7:37 AM) Room air (02/20/22 4:07 AM) Blood pressure sites Arm, left (02/20/22 10:16 AM) Arm, left (02/20/22 7:37 AM) Arm, left (02/20/22 4:07 AM) Temperature Route Oral (02/20/22 4:07 AM) Weight Obtained Via Patient/family state d (02/20/22 4:07 AM) Note * BHSPowerscribe , CIS S: TRANSCRIBE Santo Flores MD: VERIFY Event Display: Result: Authored Date: Chest Portable Hx of Present Illness: abd pain began earlier and getting worse; Reason: Shortness of Breath; Clinical Question(s): CHF COMPARISON: 11/20/2021 FINDINGS: LINES AND TUBES: None. LUNGS AND PLEURA: Mild hazy opacity in left greater than right lung bases with partial obscuration of the left lateral heart border. No pleural effusion. No pneumothorax. HEART, MEDIASTINUM AND RENATO: Heart is normal in size. Normal upper mediastinal and hilar contour. BONES AND SOFT TISSUES: No acute abnormality. IMPRESSION: Mild hazy opacity in left greater than right lung bases with partial obscuration of the left lateral heart border could suggest consolidation. WSN: [id number] Ordering Physician: Asim Bowman Dictated By: Santo Flores MD Dictated Date/Time: 02/20/22 8:20 am Reviewed By: Santo Flores MD Signed By: Santo Flores MD Signed Date/Time: 02/20/22 8:20 am Transcribed By: NAHUN Transcribed Date/Time: 02/20/22 8:18 am * BRIA Paige S: TRANSCRIClaudio Cabral MD: VERIFY Event Display: Result: Authored Date: [id number] Chest 2 Views Frontal and Lat Hx of Present Illness: abd pain began earlier and getting worse; Reason: Shortness of Breath; Clinical Question(s): CHF; COMPARISON: 02/20/2022. FINDINGS: LINES AND TUBES: None. LUNGS AND PLEURA: Clear lungs. Normal pulmonary vascularity. No pleural effusion. No pneumothorax. HEART, MEDIASTINUM AND RENATO: Heart is normal in size. Normal upper mediastinal and hilar contour. BONES AND SOFT TISSUES: No acute abnormality. IMPRESSION: No acute abnormality. WSN: [id number] Ordering Physician: Asim Bowman Dictated By: Claudio Moreno MD Dictated Date/Time: 02/20/22 10:29 a Reviewed By: Claudio Moreno MD Signed By: Cluadio Moreno MD Signed Date/Time: 02/20/22 10:29 am Transcribed By: NAHUN Transcribed Date/Time: 02/20/22 10:28 am Care Team Personnel Name: Wil CASTREJON , Dante Robbins Address: [address] [place] [address]
--- OUTSIDE RECORDS SUMMARY | 2023-03-23 06:00 | XMS_ITS | Continuity of Care Document ---
Author Name Unknown Organization [facility] Address [address] [place] [address]- Care Team Providers Care Electrolysis Operator Name Role Phone Wil CASTREJON, Dante Robbins Primary Care Physician En[place] [facility] [place] Date(s): 05/04/22 - 06/03/22 [facility] [address] [address] Attending Physician: AdmFlory hart Admitting Physician: Admtr, Eric8 Referring Physician: Admtr, Ar8 Allergies, Adverse Reactions, [...] 03/31/22 12:25:00 EDT, [id number], Partial fill upon patient request if the [...] 03/31/22 12:26:00 EDT, Tablet, [facility] #[id number], Partial fill upon patient request if the... [...] Team Personnel Name: Heriberto COX, Santo Position: [facility] SN RN Member Role: Primary Care Nurse Name: Wil CASTREJON , Dante Robbins Position: Reference Physician Member Role: PCP Address: Address: [address] [place] [address]- Care Team Related Persons Name: GERRY QUINTERO Address: [place] [address] Name: JAGDISH GAN Address: home [address] [place] [address] Name: EMORY RUDOLPH Address: home [address] [place] [address]
--- OUTSIDE RECORDS SUMMARY | 2023-03-23 06:00 | XMS_ITS | Continuity of Care Document ---
Author Name Unknown Organization [facility] Address Unknown Care Team Providers Care Traffic Signal Technician Name Role Phone Wil CASTREJON, Dante Robbins Primary Care Physician [phone] Encounter [facility] [place] Date(s): 07/29/21 - 08/28/21 [facility] Allergies, Adverse Reactions, Alerts No Known [...] tablet, 3 Refills, Maintenance, 08/20/21 15:49:00 EST, [facility] #[id number], Partial fill upon patient request if theprescription is for a schedule II opioid drug., 168... Start Date: 08/20/21 Status: Ordered Wellbutrin By Mouth, 0 Refills, Maintenance, 10/05/20 7:11:00 EDT, Partial fill upon patient request if the prescription is for a schedule II opioid drug. Start Date: 10/05/20 Status: Ordered
--- OUTSIDE RECORDS SUMMARY | 2023-03-23 06:00 | XMS_ITS | Continuity of Care Document ---
Author Name Unknown Organization [facility] ter Address [address] [place] [address]- Care Team Providers Care Service Director Name Role Phone Wil CASTREJON, Dante Robbins Primary Care Physician Encounter [facility] [place] Date(s): 11/29/21 - 11/29/[address] [address]- Discharge Disposition: A-D/C Home Attending Physician: Jeevan CASTREJON, Yani [place] Admitting Physician: Jeevan CASTREJON, Yani [place] Referring Physician: Not on Staff, Referring MD Allergies, Adverse Reactions, Alerts Substance Reaction Severity Status Moderna COVID-19 Vaccine PF Active Medications albuterol 90 mcg/inh inhalation powder 2 puffs, Inhalation, Every 4 hours, PRN as needed, # 1 each, 0 Refills, Maintenance, 05/31/18 2:39:02 EST, Powder Start Date: 05/31/18 Status: Ordered ibuprofen 400 mg oral tablet 400 mg, 1, tablet, By Mouth, Every 6 hours, # 40 tablet, Refills 0, Tot. Refills 0, Acute 12/09/21 8:00:00 EDT, 11/29/21 10:20:00 EDT, [id number], Partial fill upon patient request if the prescription... Start Date: 11/29/21 Stop Date: 12/09/21 Status: Ordered Motrin Tablet 600 mg, Tablet, By Mouth, Once, STAT, 11/29/21 7:09:00 EDT, Stop date 11/29/21 7:09:00 EDT Start Date: 11/29/21 Stop Date: 11/29/21 Status: Completed Omeprazole By Mouth, Daily, 0 Refills, Maintenance, 10/05/20 7:11:00 EDT, Partial fill upon patient request ifthe prescription is for a schedule II opioid drug. Start Date: 10/05/20 Status: Ordered Topamax 25 mg oral tablet 3 tablet = 75 mg, By Mouth, 2 times a day, # 180 tablet, 5 Refills, Maintenance, 09/24/21 13:21:00 EDT, [facility] #[id number], Partial fill upon patient request if the prescription is for a schedule II opioid drug., 168, cm, 09/24/21 12:49:00 ED... Start Date: 09/24/21 Stop Date: 03/23/22 Status: Ordered Tylenol Extra Strength EZ 500 mg oral tablet 2 tablet = 1,000 mg, By Mouth, Every 6 hours, # 80 tablet, 0 Refills, Acute 12/09/21 8:00:00 EDT, 11/29/21 10:16:00 EDT, [facility] #[id number], Partial fill upon patient request if the prescription is for a schedule II opioid drug., 168, cm, ... Start Date: 11/29/21 Stop Date: 12/09/21 Status: Ordered Wellbutrin By Mouth, 0 Refills, Maintenance, 10/05/20 7:11:00 EDT, Partial fill upon patient request if the prescription is for a schedule II opioid drug. Start Date: 10/05/20 Status: Ordered Problem List Condition Effective Dates Status Health Status Inform ant Severe obesity(Confirmed) Active Results Radiology Reports * Exam Date Time Procedure Performing Provider Status 11/29/21 8:43 AM Tibia/Fibula 2 Views Left Onelia Eugene; Auth (Verified) Notes: (Tibia/Fibula 2 Views Left) Reason For Exam: Pain RESULT: Tibia/Fibula 2 Views Left Tibia/Fibula 2 Views Left INDICATION: Fall 2 days ago COMPARISON: None. FINDINGS: No fractures or bone lesions. Well-corticated 1.0 cm osseous focus projecting posterior to the kneejoint on the lateral view, nonspecific but may represent a variant of os fabella or may be due to aremote soft tissue injury. Minimal marginal spurring at the knee joint and tibiotalar joint. Unremarkable soft tissues. IMPRESSION: No acute osseous abnormality. 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 I have personally reviewed the images and I agree with this report. WSN: [id number] Ordering Physician: Abraham Gomez Dictated By: David Galvan DO Dictated Date/Time: 11/29/21 12:00 p Reviewed By: Gene Bran MD Signed By: Gene Bran MD Signed Date/Time: 11/29/21 12:05 pm Transcribed By: NAHUN Transcribed Date/Time: 11/29/21 11:53 am Vital Signs Most recent to oldest [Reference Range]: 1 2 3 Weight 126.1 kg (11/29/21 10:15 AM) 126.1 kg (11/29/21 7:10 AM) Oxygen Saturation [94-100 %] 94 % (11/29/21 10:15 AM) 100 % (11/29/21 7:10 AM) Pulse Rate [55-90 bpm] 60 bpm (11/29/21 10:15 AM) 75 bpm (11/29/21 7:10 AM) Blood Pressure [90-138/55-84 mm Hg] 103/60mm Hg (11/29/21 10:15 AM) 131/69mm Hg (11/29/21 7:10 AM) Respiratory Rate [16-30 br/min] 15 br/min *L* (11/29/21 10:15 AM) 18 br/min (11/29/21 7:52 AM) 20 br/min (11/29/21 7:10 AM) Temperature [96.8-100.4 DegF] 97.3 DegF (11/29/21 7:10 AM) Mode of Delivery (Oxygen) Room air (11/29/21 10:15 AM) Room air (11/29/21 7:10 AM) Blood pressure sites Arm, right (11/29/21 10:15 AM) Temperature Route Oral (11/29/21 7:10 AM) Dry Weight 126.1 kg (11/29/21 10:15 AM) 126.1 kg (11/29/21 7:10 AM)
--- OUTSIDE RECORDS SUMMARY | 2023-03-23 06:00 | XMS_ITS | Continuity of Care Document ---
Author Name Unknown Organization [facility] Address Unknown Care Team Providers Care Barrel Cleaner Name Role Phone Wil CASTREJON, Dante Robbins Primary Care Physician [phone] [facility] [place] Date(s): 07/30/21 - 08/29/21 [facility] Allergies, Adverse Reactions, Alerts No [...] tablet, 3 Refills, Maintenance, 08/20/21 15:49:00 EST, [facility] #[id number], Partial fill upon patient request if theprescription is for a schedule II opioid drug., 168... Start Date: 08/20/21 Status: Ordered Wellbutrin By Mouth, 0 Refills, Maintenance, 10/05/20 7:11:00 EDT, Partial fill upon patient request if the prescription is for a schedule II opioid drug. Start Date: 10/05/20 Status: Ordered
--- OUTSIDE RECORDS SUMMARY | 2023-03-23 06:00 | XMS_ITS | Continuity of Care Document ---
Author Name Unknown Organization [facility] ter Address [address] [place] [address]- Care Team Providers Care Barratte Operator Name Role Phone Wil CASTREJON, Dante Robbins Primary Care Physician Encounter [place] Date(s): 11/15/22 - 11/15/[address] [address]- Encounter Diagnosis Enteritis(Final) - 11/15/22 Discharge Disposition: A-D/C Home Attending Physician: Charmaine [...] 03/31/22 12:25:00 EDT, [id number], Partial fill upon patient request if the [...] Refills, Maintenance, 08/17/22 11:26:00 EST, DIS Tablet, [facility] #[id number], Partial fill upon patient request if the prescription is for a schedule I... Start Date: 08/17/22 Stop Date: 08/20/22 Status: Ordered ondansetron 4 mg oral tablet, disintegrating 1 tablet = 4 mg, By Mouth, Every 8 hours, PRN as needed for nausea/vomiting, # 12 tablet, 0 Refills, Maintenance, 11/15/22 7:07:00 EDT, DIS Tablet, [facility] #[id number], Partial fill upon patient request if the prescription is for a schedule II... Start Date: 11/15/22 Stop Date: 11/18/22 Status: Ordered SUMAtriptan 50 mg oral tablet 1 tablet = 50 mg, By Mouth, Daily, PRN for migraine headache, may repeat dose after 2 hours up to amaximum of 2, # 9 tablet, 2 Refills, Maintenance, 03/31/22 12:26:00 EDT, [facility][id number], Partial fill upon patient request if the... [...] Exam Date Time Procedure Performing Provider Status 11/15/22 6:[address] Abd/Pelvis W/ IV Contrast Only Ashley Bergman Lucretia; Michelet (Verified) Notes: (CT Abd/Pelvis W/ IV Contrast Only) Reason For Exam: LLQ abdominal pain;Other: RESULT: CT Abd/Pelvis W/ IV Contrast Only CT Abd/Pelvis W/ IV Contrast Only HX OF PRESENT ILLNESS: Rectal bleeding. Abdominal pain TECHNIQUE: Spiral CT through the abdomen and pelvis with IV contrast formatted in 3 planes. 100 cc of Omnipaque 300 was administered intravenously. This study was performed without oral contrast. Weight-based protocol using automatic tube modulation was used to optimize exposure parameters. CTDIvol Body: 19.90 mGy, DLP Body: 1113 mGy*cm. COMPARISON: 02/20/2022. FINDINGS: Tower Attendant View Findings, Lines and Tubes: None. Visualized Chest: Bilateral dependent atelectasis. No pleural effusion. The heart is normal in size. No pericardial effusion. Diaphragm: Normal. Liver: Multiple subcentimeter circumscribed low-density lesions likely represent cysts (in the absence of known malignancy). Gallbladder: Decompressed, which may be due to a postprandial state. Bile ducts: No biliary ductal dilation. Spleen: Normal. Accessory splenic tissue is incidentally noted. Pancreas: Normal. Adrenal glands: Normal. Kidneys and ureters: No hydronephrosis, stones, or suspicious masses. Bladder: Normal. Reproductive organs: Unremarkable. Stomach, small bowel, and large bowel: Mild wall thickening of some proximal jejunal bowel loops inthe left upper quadrant (series 201:40). This may be due to underdistention or enteritis. 2 scattered colonic diverticula without diverticulitis. Appendix: Normal. Peritoneum and retroperitoneum: No ascites or pneumoperitoneum. No omental or mesenteric lesions. Lymph nodes: No enlarged lymph nodes. Blood vessels: Normal. No aneurysm. No evidence of venous thrombosis. Abdominal and pelvic wall: Small fat-containing periumbilical hernia. Bones: No acute abnormality. Mild degenerative changes of the lower thoracic spine. IMPRESSION: No diverticulitis as queried. Mild wall thickening of proximal jejunal bowel loops likely due to under distention, less likely enteritis. Otherwise, no acute process in the abdomen or pelvis. I have personally reviewed the images and I agree with this report. WSN: [id number] Ordering Physician: Marisa Hernandez Dictated By: Monty Ceballos MD Dictated Date/Time: 11/15/22 7:18 am Reviewed By: Janes Godron MD Signed By: Janes Gordon MD Signed Date/Time: 11/15/22 7:23 am Transcribed By: NAHUN Transcribed Date/Time: 11/15/22 6:41 am * Exam Date Time Procedure Performing Provider Status 11/15/22 3:46 AM Chest Portable Ashlie Stallworth; Auth (Verified) Notes: (Chest Portable) Reason For Exam: Chest Pain;Other: RESULT: Chest Portable Chest Portable Hx of Present Illness: Pt endorses x3 episodes of rectal bleeding BRB today accompanied w umbilicalabd pain.; Reason: Other:; Chest Pain; Clinical Question(s): CHF COMPARISON: 02/20/2022. FINDINGS: LINES AND TUBES: None. LUNGS AND PLEURA: Clear lungs. Normal pulmonary vascularity. No pleural effusion. No pneumothorax. HEART, MEDIASTINUM AND RENATO: Heart is normal in size. Normal mediastinal and hilar contour. BONES AND SOFT TISSUES: No acute abnormality. IMPRESSION: No acute abnormality. WSN: [id number] Ordering Physician: Marisa Hernandez Dictated By: Niya Aguila MD Dictated Date/Time: 11/15/22 6:13 am Reviewed By: Niya Aguila MD Signed By: Niya Aguila MD Signed Date/Time: 11/15/22 6:13 am Transcribed By: NAHUN Transcribed Date/Time: 11/15/22 6:12 am Vital Signs Most recent to oldest [Reference Range]: 1 2 3 Oxygen Saturation [94-100 %] 99 % (11/15/22 7:39 AM) 100 % (11/15/22 6:33 AM) 100 % (11/15/22 5:38 AM) Pulse Rate [55-90 bpm] 70 bpm (11/15/22 7:39 AM) 62 bpm (11/15/22 6:33 AM) 76 bpm (11/15/22 5:38 AM) Blood Pressure [90-138/55-84 mm Hg] 103/64mm Hg (11/15/22 7:39 AM) 96/49mm Hg (11/15/22 6:33 AM) 102/74mm Hg (11/15/22 5:38 AM) Respiratory Rate [16-30 br/min] 18 br/min (11/15/22 7:39 AM) 16 br/min (11/15/22 6:33 AM) 18 br/min (11/15/22 5:38 AM) Temperature [96.8-100.4 DegF] 98.1 DegF (11/15/22 6:33 AM) 98.1 DegF (11/15/22 5:38 AM) 98.1 DegF (11/15/22 3:18 AM) Mode of Delivery (Oxygen) Room air (11/15/22 7:39 AM) Room air (11/15/22 6:33 AM) Room air (11/15/22 5:38 AM) Blood pressure sites Arm, right (11/15/22 6:33 AM) Arm, left (11/15/22 5:38 AM) Temperature Route Oral (11/15/22 6:33 AM) Oral (11/15/22 5:38 AM) Oral (11/15/22 3:18 AM) Portable XR Chest Views * BHSPowerscribe , CIS S: TRANSCNiya Maldonado MD: VERIFY Event Display: Result: Authored Date: [id number] Chest Portable Hx of Present Illness: Pt endorses x3 episodes of rectal bleeding BRB today accompanied w umbilicalabd pain.; Reason: Other:; Chest Pain; Clinical Question(s): CHF COMPARISON: 02/20/2022. FINDINGS: LINES AND TUBES: None. LUNGS AND PLEURA: Clear lungs. Normal pulmonary vascularity. No pleural effusion. No pneumothorax. HEART, MEDIASTINUM AND RENATO: Heart is normal in size. Normal mediastinal and hilar contour. BONES AND SOFT TISSUES: No acute abnormality. IMPRESSION: No acute abnormality. WSN: [id number] Ordering Physician: Marisa Hernandez Dictated By: Niya Aguila MD Dictated Date/Time: 11/15/22 6:13 am Reviewed By: Niya Aguila MD Signed By: Niya Aguila MD Signed Date/Time: 11/15/22 6:13 am Transcribed By: NAHUN Transcribed Date/Time: 11/15/22 6:[address] Abdomen and Pelvis W contrast IV * BRIA Paige S: TRANSCJanes Joseph MD W: VERIFY Monty Ceballos MD: SIGN Event Display: Result: Authored Date: [id number] CT Abd/Pelvis W/ IV Contrast Only HX OF PRESENT ILLNESS: Rectal bleeding. Abdominal pain TECHNIQUE: Spiral CT through the abdomen and pelvis with IV contrast formatted in 3 planes. 100 cc of Omnipaque 300 was administered intravenously. This study was performed without oral contrast. Weight-based protocol using automatic tube modulation was used to optimize exposure parameters. CTDIvol Body: 19.90 mGy, DLP Body: 1113 mGy*cm. COMPARISON: 02/20/2022. FINDINGS: Tower Attendant View Findings, Lines and Tubes: None. Visualized Chest: Bilateral dependent atelectasis. No pleural effusion. The heart is normal in size. No pericardial effusion. Diaphragm: Normal. Liver: Multiple subcentimeter circumscribed low-density lesions likely represent cysts (in the absence of known malignancy). Gallbladder: Decompressed, which may be due to a postprandial state. Bile ducts: No biliary ductal dilation. Spleen: Normal. Accessory splenic tissue is incidentally noted. Pancreas: Normal. Adrenal glands: Normal. Kidneys and ureters: No hydronephrosis, stones, or suspicious masses. Bladder: Normal. Reproductive organs: Unremarkable. Stomach, small bowel, and large bowel: Mild wall thickening of some proximal jejunal bowel loops inthe left upper quadrant (series 201:40). This may be due to underdistention or enteritis. 2 scattered colonic diverticula without diverticulitis. Appendix: Normal. Peritoneum and retroperitoneum: No ascites or pneumoperitoneum. No omental or mesenteric lesions. Lymph nodes: No enlarged lymph nodes. Blood vessels: Normal. No aneurysm. No evidence of venous thrombosis. Abdominal and pelvic wall: Small fat-containing periumbilical hernia. Bones: No acute abnormality. Mild degenerative changes of the lower thoracic spine. IMPRESSION: No diverticulitis as queried. Mild wall thickening of proximal jejunal bowel loops likely due to under distention, less likely enteritis. Otherwise, no acute process in the abdomen or pelvis. I have personally reviewed the images and I agree with this report. WSN: [id number] Ordering Physician: Marisa Hernandez Dictated By: Monty Ceballos MD Dictated Date/Time: 11/15/22 7:18 am Reviewed By: Janes Gordon MD Signed By: Janes Gordon MD Signed Date/Time: 11/15/22 7:23 am Transcribed By: NAHUN Transcribed Date/Time: 11/15/22 6:41 am Patient Care team information Care Team Personnel Name: Santo Louis RN Position: [facility] SN RN Member Role: Primary Care Nurse Name: Wil CASTREJON, Dante Robbins Position: Reference Physician Member Role: PCP Address: Address: [address] [place] [address]- Name: Marisa Hernandez DO Position: S Resident Member Role: ED Resident Address: Address: [address] [place] [address]- Name: Olivia Peña RN Position: [facility] ED RN W/OE and Tasks Member Role: Patient Care Provider Name: Jody Lopez MD Position: [facility] ED Medicine MD Address: Address: [address] [place] [address]- Care Team Related Persons Name: GERRY QUINTERO Address: [place] [address] Name: JAGDISH GAN Address: home [address] [place] [address] Name: EMORY RUDOLPH Address: home [address] [place] [address]
--- OUTSIDE RECORDS SUMMARY | 2023-03-23 06:00 | XMS_ITS | Continuity of Care Document ---
Author Name Unknown Organization [facility] Address Unknown Care Team Providers Care Sales Representative Wire Rope Name Role Phone Wil CASTREJON, Dante Robbins Primary Care Physician [phone] [place] [facility] [place] [id number] Date(s): 06/18/21 - 08/13/21 [facility] Attending Physician: Len Mcbride MD Admitting Physician: Len Mcbride MD Referring Physician: Kirk De La Torre MD Allergies, Adverse Reactions, Alerts No Known [...] Refills, Maintenance, 08/11/21 12:30:00 EST, EC Tablet, [facility] #[id number], Partial fill upon patient request if the [...]
--- OUTSIDE RECORDS SUMMARY | 2023-03-23 06:00 | XMS_ITS | Continuity of Care Document ---
Author Name Unknown Organization [facility] ter Address [address] [place] [address]- Care Team Providers Care Child Nutrition Director Name Role Phone Wil CASTREJON, Dante Robbins Primary Care Physician [place] [facility] [place] - 09/03/[address] [address]- Discharge Disposition: A-D/C Home Attending Physician: Carlton Perales MD Admitting Physician: Carlton Perales MD Referring Physician: Not on Staff, Referring [...] Maintenance, Tablet Start Date: 03/01/11 Status: Ordered ondansetron 4 mg oral tablet, disintegrating 1 tablet = 4 mg, By Mouth, Every 8 hours, PRN as needed for nausea/vomiting, # 9 tablet, 0 Refills,Maintenance, 06/20/20 19:31:00 EST, DIS Tablet, Partial fill upon patient request if the prescription is for a schedule II opioid drug. Start Date: 06/20/20 Stop Date: 06/23/20 Status: Ordered oxyCODONE 5 mg oral tablet [...] Exam Date Time Procedure Performing Provider Status 09/03/20 4:54 AM Knee 3 Views Right [place]; Michelet (Verified) Notes: (Knee 3 Views Right) Reason For Exam: with Pain;Trauma RESULT: Knee 3 Views Right Knee 3 Views Right Hx of Present Illness: Slip and fall; Reason: Trauma; with Pain; Clinical Question(s): Fracture; Special Instructions: Patella ([place]) FINDINGS: No fracture or dislocation. Mild narrowing medial joint compartment. Small spurs throughout joint. IMPRESSION: Mild degenerative changes. WSN: [id number] Ordering Physician: Deyvi Wise Dictated By: Erasto Porter MD Dictated Date/Time: 09/03/20 8:10 am Reviewed By: Erasto Porter MD Signed By: Erasto Porter MD Signed Date/Time: 09/03/20 8:10 am Transcribed By: NAHUN Transcribed Date/Time: 09/03/20 8:08 am Vital Signs Most recent to oldest [Reference Range]: 1 Oxygen Saturation [94-100 %] 100 % (09/03/20 4:04 AM) Pulse Rate [55-90 bpm] 85 bpm (09/03/20 4:04 AM) Blood Pressure [90-138/55-84 mm Hg] 108/ 73mm Hg (09/03/20 4:04 AM) Respiratory Rate [16-30 br/min] 18 br/mi n (09/03/20 4:04 AM) Temperature [96.8-100.4 DegF] 98.8 DegF (09/03/20 4:04 AM) Mode of Delivery (Oxygen) Room air (09/03/20 4:04 AM) Blood pressure sites Arm, right (09/03/20 4:04 AM) Temperature Route Oral (09/03/20 4:04 AM)
--- OUTSIDE RECORDS SUMMARY | 2023-03-23 06:00 | XMS_ITS | Continuity of Care Document ---
Author Name Unknown Organization [facility] ter Address [address] [place] [address]- Care Team Providers Care Signal Worker Name Role Phone Wil CASTREJON, Dante Robbins Primary Care Physician En[place] [facility] [place] Date(s): 03/21/23 - 03/21/[address] [address]- Discharge Disposition: A-D/C Walkout Attending Physician: Not [...] 03/31/22 12:25:00 EDT, Route to Pharmacy Electronically, [facility] #[id number], Partial fill upon patient request if the [...] Refills, Maintenance, 08/17/22 11:26:00 EST, DIS Tablet, [facility] #[id number], Partial fill upon patient request if the prescription is for a schedule I... Start Date: 08/17/22 Stop Date: 08/20/22 Status: Ordered ondansetron 4 mg oral tablet, disintegrating 1 tablet = 4 mg, By Mouth, Every 8 hours, PRN as needed for nausea/vomiting, # 12 tablet, 0 Refills, Maintenance, 11/15/22 7:07:00 EDT, DIS Tablet, [facility] #[id number], Partial fill upon patient request if the prescription is for a schedule II... Start Date: 11/15/22 Stop Date: 11/18/22 Status: Ordered SUMAtriptan 50 mg oral tablet 1 tablet = 50 mg, By Mouth, Daily, PRN for migraine headache, may repeat dose after 2 hours up to amaximum of 2, # 9 tablet, 2 Refills, Maintenance, 03/31/22 12:26:00 EDT, Tablet, [facility] #[id number], Partial fill upon patient request if the... Start Date: 03/31/22 Status: Ordered Wellbutrin By Mouth, 0 Refills, Maintenance, 10/05/20 7:11:00 EDT, Partial fill upon patient request if the prescription is for a schedule II opioid drug. Start Date: 10/05/20 Status: Ordered Problem List Condition Confirmation Course Effective Dates Status Health St atus Informant Severe obesity Confirmed Active Vital Signs Most recent to oldest [Reference Range]: 1 Height 168 cm (03/21/23 6:27 AM) Weight 118 kg (03/21/23 6:27 AM) Oxygen Saturation [94-100 %] 98 % (03/21/23 6:27 AM) Pulse Rate [55-90 bpm] 75 bpm (03/21/23 6:27 AM) Blood Pressure [90-138/55-84 mm Hg] 104/ 65mm Hg (03/21/23 6:27 AM) Respiratory Rate [16-30 br/min] 16 br/mi n (03/21/23 6:27 AM) Temperature [96.8-100.4 DegF] 97.5 DegF (03/21/23 6:27 AM) Mode of Delivery (Oxygen) Room air (03/21/23 6:27 AM) Temperature Route Oral (10/2/23 6:27 AM) Dry Weight 118 kg (03/21/23 6:27 AM) Weight Obtained Via Patient/family state d (03/21/23 6:27 AM) Dry Weight Obtained Via Patient/family s tated (03/21/23 6:27 AM) Patient Care team information Care Team Personnel Name: Heriberto COX, Santo Position: S SN RN Member Role: Primary Care Nurse Name: Wil CASTREJON, Dante Robbins Position: Reference Physician Member Role: PCP Address: Address: [address] [place] [address] Care Team Related Persons Name: GERRY QUINTERO Address: [place] [address] Name: JAGDISH GAN Address: home [address] [place] [address] Name: EMORY RUDOLPH Address: home [address] [place] [address]
--- OUTSIDE RECORDS SUMMARY | 2023-03-23 06:00 | XMS_ITS | Continuity of Care Document ---
Author Name Unknown Organization [facility] ter Address [address] [place] [address]- Care Team Providers Care Motor Express Clerk Name Role Phone Wil CASTREJON, Dante Robbins Primary Care Physician Encounter [facility] [place] Date(s): 01/23/23 - 01/23/[address] [address]- Encounter Diagnosis Encounter for fitness for duty examination(Final) - 01/23/23 Discharge Disposition: A-D/C Home Attending Physician: Chon Hart MD Admitting Physician: Chon Hart MD Referring Physician: Not on Staff, Referring [...] 03/31/22 12:25:00 EDT, Route to Pharmacy Electronically, [facility] #[id number], Partial fill upon patient request if the [...] Refills, Maintenance, 08/17/22 11:26:00 EST, DIS Tablet, [facility] #[id number], Partial fill upon patient request if the prescription is for a schedule I... Start Date: 08/17/22 Stop Date: 08/20/22 Status: Ordered ondansetron 4 mg oral tablet, disintegrating 1 tablet = 4 mg, By Mouth, Every 8 hours, PRN as needed for nausea/vomiting, # 12 tablet, 0 Refills, Maintenance, 11/15/22 7:07:00 EDT, DIS Tablet, [facility] #[id number], Partial fill upon patient request if the prescription is for a schedule II... Start Date: 11/15/22 Stop Date: 11/18/22 Status: Ordered SUMAtriptan 50 mg oral tablet 1 tablet = 50 mg, By Mouth, Daily, PRN for migraine headache, may repeat dose after 2 hours up to amaximum of 2, # 9 tablet, 2 Refills, Maintenance, 03/31/22 12:26:00 EDT, Tablet, [facility] #[id number], Partial fill upon patient request if the... [...] [Reference Range]: 1 2 Height 168 cm (01/23/23 4:15 AM) Oxygen Saturation [94-100 %] 99 % (01/23/23 6:29 AM) 100 % (01/23/23 4:15 AM) Pulse Rate [55-90 bpm] 67 bpm (01/23/23 6:29 AM) 69 bpm (01/23/23 4:15 AM) Blood Pressure [90-138/55-84 mm Hg] 109/ 62mm Hg (01/23/23 6:29 AM) 123/80mm Hg (01/23/23 4:15 AM) Respiratory Rate [16-30 br/min] 18 br/mi n (01/23/23 6:29 AM) 18 br/min (01/23/23 4:15 AM) Temperature [96.8-100.4 DegF] 97.9 DegF (01/23/23 6:29 AM) 97.7 DegF (01/23/23 4:15 AM) Mode of Delivery (Oxygen) Room air (01/23/23 6:29 AM) Room air (01/23/23 4:15 AM) Blood pressure sites Arm, left (01/23/23 6:29 AM) Arm, right (01/23/23 4:15 AM) Temperature Route Oral (01/23/23 6:29 AM) Oral (01/23/23 4:15 AM) Dry Weight 119 kg (01/23/23 4:15 AM) Dry Weight Obtained Via Patient/family s tated (01/23/23 4:15 AM) Patient Care team information Care Team Personnel Name: Santo Louis RN Position: [facility] SN RN Member Role: Primary Care Nurse Name: Wil CASTREJON, Dante Robbins Position: Reference Physician Member Role: PCP Address: Address: [address] [place] [id number] Name: *[facility], ED Attending Position: [facility] ED Attendings Patient Name: Rina Potter RN Position: [facility] ED RN W/OE and Tasks Member Role: Patient Care Provider Name: Chon Hart MD Position: [facility] Resident Member Role: Admitting Physician Address: Address: [address] [place] [address] [place] [address]- Care Team Related Persons Name: GERRY QUINTERO Address: [place] [address] Name: JAGDISH GAN Address: home [address] [place] [address] Name: EMORY RUDOLPH Address: home [address] [place] [address]
--- OUTSIDE RECORDS SUMMARY | 2023-03-23 06:00 | XMS_ITS | Continuity of Care Document ---
Author Name Unknown Organization [facility] Address [address] [facility], [address] d Floor, [address] [place] [address]- Care Team Providers Care Corporation Secretary Name Role Phone Wil CASTREJON, Dante Robbins Primary Care Physician [place] [facility] [place](s): 06/05/22 - 08/11/22 [facility] [address], [address], [address] [place] [id number] Attending Physician: Len Mcbride MD Admitting Physician: Len Mcbride MD Allergies, Adverse Reactions, Alerts Substance Reaction [...] 03/31/22 12:25:00 EDT, Route to Pharmacy Electronically, [facility] #[id number], Partial fill upon patient request if the [...] 2 Refills, Maintenance, 03/31/22 12:26:00 EDT, Tablet, [facility] #[id number], Partial fill upon patient request if the... [...] Reference Physician Member Role: PCP Address: Address: [address] [place] [address]- Care Team Related Persons Name: GERRY QUINTERO Address: [place] [address] Name: JAGDISH GAN Address: home [address] [place] [address] Name: EMORY RUDOLPH Address: home [address] [place] [id number]
--- OUTSIDE RECORDS SUMMARY | 2023-03-23 06:00 | XMS_ITS | Continuity of Care Document ---
Author Name Unknown Organization [facility] ter Address [address] [place] [address]- Care Team Providers Care Division Supervisor Name Role Phone Wil CASTREJON, Dante Robbins Primary Care Physician Encounter [facility] [place] Date(s): 06/20/20 - 06/20/[address] [address]- Discharge Disposition: A-D/C Home Attending Physician: Jasmin Alvares MD Admitting Physician: Jasmin Alvares MD Referring Physician: Not on Staff, Referring [...] Date: 01/24/15 Stop Date: 01/26/15 Status: Ordered Tessalon Perles 100 mg oral capsule 1 capsule = 100 mg, By Mouth, 3 times a day, PRN as needed for cough, for 7 days, # 21 capsule, 0 Refills, Acute 06/27/20 19:31:00 EST, 06/20/20 19:31:00 EST, Capsule, Partial fill upon patient request if the prescription is for a schedule II opioid d... Start Date: 06/20/20 Stop Date: 06/27/20 Status: Ordered Zofran 4 mg oral tablet 1 tablet = 4 mg, By Mouth, Every 8 hours, PRN as needed for nausea/vomiting, # 10 tablet, 0 Refills, Maintenance, 04/14/18 9:19:22 EDT, Tablet Start Date: 04/14/18 Status: Ordered Results Radiology Reports * Exam Date Time Procedure Performing Provider Status 06/20/20 5:51 PM Chest Portable Nicole Thao; Auth (V erified) Notes: (Chest Portable) Reason For Exam: Shortness of Breath RESULT: Chest Portable Chest Portable Hx of Present Illness: patient presents with body aches, diarrhea, and productive cough; Reason: Shortness of Breath; Clinical Question(s): Pneumonia COMPARISON: None. FINDINGS: LINES AND TUBES: None. LUNGS AND PLEURA: Clear lungs. Normal pulmonary vascularity. No pleural effusion. No pneumothorax. HEART, MEDIASTINUM AND RENATO: Heart is normal in size. Normal upper mediastinal and hilar contour. BONES AND SOFT TISSUES: No acute abnormality. IMPRESSION: No acute abnormality. WSN: [id number] Ordering Physician: Lois Webster Dictated By: Alexander Castillo MD Dictated Date/Time: 06/20/20 5:53 pm Reviewed By: Alexander Castillo MD Signed By: Alexander Castillo MD Signed Date/Time: 06/20/20 5:53 pm Transcribed By: NAHUN Transcribed Date/Time: 06/20/20 5:53 pm Vital Signs Most recent to oldest [Reference Range]: 1 2 Oxygen Saturation [94-100 %] 99 % (06/20/20 3:35 PM) 99 % (06/20/20 3:24 PM) Pulse Rate [55-90 bpm] 90 bpm (06/20/20 3:35 PM) 107 bpm *H* (06/20/20 3:24 PM) Blood Pressure [90-138/55-84 mm Hg] 104/ 58mm Hg (06/20/20 3:35 PM) Respiratory Rate [16-30 br/min] 20 br/mi n (06/20/20 3:35 PM) 20 br/min (06/20/20 3:24 PM) Temperature [96.8-100.4 DegF] 98.8 DegF (06/20/20 3:35 PM) Mode of Delivery (Oxygen) Room air (06/20/20 3:35 PM) Room air (06/20/20 3:24 PM) Blood pressure sites Arm, right (06/20/20 3:35 PM) Temperature Route Oral (06/20/20 3:35 PM)
--- OUTSIDE RECORDS SUMMARY | 2023-03-23 06:00 | XMS_ITS | Continuity of Care Document ---
Author Name Unknown Organization [facility] Address [address] [place] [id number]- Care Team Providers Care Tool Specialist Name Role Phone Wil CASTREJON, Dante Robbins Primary Care Physician [phone] [id number] Date[facility]s): [facility]17[facility] - 03/25/[facility] [address] [address]- Attending Physician: Mary Fuller MD Admitting Physician: Mary Fuller MD Referring Physician: Ashley Riley DO Allergies, Adverse Reactions, Alerts Substance Reaction Severity [...] tablet, 5 Refills, Maintenance, 09/24/21 13:21:00 EDT, [facility] #[id number], Partial fill upon patient request if the [...] obesity Confirmed Active Patient Care team information Personnel Name: Wil CASTREJON , Dante Robbins Address: Address: [address] [place] [id number]
--- OUTSIDE RECORDS SUMMARY | 2023-03-23 06:00 | XMS_ITS | Continuity of Care Document ---
Author Name Unknown Organization [facility] Address [address] [facility], 3r d Floor, [address] [place] [id number]- Care Team Providers Care Brim Cutter Name Role Phone Wil CASTREJON, Dante Robbins Primary Care Physician Encounter [facility] R [id number] Date(s): 03/31/22 - 04/30/22 [facility] [address], 3rd Floor, [address] [place] [id number] Attending Physician: Admtr, [id number] Admitting Physician: Admtr, [id number] Referring Physician: Admtr, [...] 03/31/22 12:25:00 EDT, Route to Pharmacy Electronically, [facility] #[id number], Partial fill upon patient request if the [...] 03/31/22 12:26:00 EDT, Tablet, [facility][id number], Partial fill upon patient request if the... [...] Personnel Name: Heriberto COX, Santo Position: Itzel BACA RN Member Role: Primary Care Nurse Name: Wil CASTREJON , Dante Robbins Position: Reference Physician Member Role: PCP Address: Address: [address] [place] [address]- Care Team Related Persons Name: GERRY QUINTERO Address: [place] [address] Name: JAGDISH GAN Address: home [address] [place] [address] Name: EMORY RUDOLPH Address: home [address] [place] [address]
--- OUTSIDE RECORDS SUMMARY | 2023-03-23 06:00 | XMS_ITS | Continuity of Care Document ---
Author Name Unknown Organization [facility] Address [address] [facility] [place], 3r d Floor, [address] [place] [address]- Care Team Providers Care Gifted Teacher Name Role Phone Wil CASTREJON, Dante Robbins Primary Care Physician [phone] Encounter [facility] Date(s): 03/15/22 - 04/14/22 [facility] [address], 3rd Floor, [address] [place] [address]- Allergies, Adverse Reactions, Alerts Substance Reaction Severity [...] 03/31/22 12:25:00 EDT, Route to Pharmacy Electronically, [facility] #[id number], Partial fill upon patient request if the [...] 2 Refills, Maintenance, 03/31/22 12:26:00 EDT, Tablet, [facility] #[id number], Partial fill upon patient request if the... [...] Wil CASTREJON , Dante Robbins Address: Address: [address] [place] [id number]
--- OUTSIDE RECORDS SUMMARY | 2023-03-23 06:00 | XMS_ITS | Continuity of Care Document ---
Author Name Unknown Organization [facility] ter Address [address] [place] [address]- Care Team Providers Care Dry Starch Supervisor Name Role Phone Wil CASTREJON, Dante Robbins Primary Care Physician Encounter [facility] Date(s): 01/13/23 - 01/13/[address] [address]- Encounter Diagnosis Chest pain(Final) - 01/13/23 Smoking(Final) - 01/13/23 Tobacco use(Final) - 01/13/23 COPD without exacerbation(Final) - 01/13/23 GERD (gastroesophageal reflux disease)(Final) - 01/13/23 Discharge Disposition: A-D/C AMA Attending Physician: Charmaine Ferro MD Admitting Physician: [...] 03/31/22 12:25:00 EDT, Route to Pharmacy Electronically, [facility] #[id number], Partial fill upon patient request if the prescription is for a davdi... Start Date: 03/31/22 Status: Ordered Omeprazole By [...] Refills, Maintenance, 08/17/22 11:26:00 EST, DIS Tablet, [facility] #[id number], Partial fill upon patient request if the prescription is for a schedule I... Start Date: 08/17/22 Stop Date: 08/20/22 Status: Ordered ondansetron 4 mg oral tablet, disintegrating 1 tablet = 4 mg, By Mouth, Every 8 hours, PRN as needed for nausea/vomiting, # 12 tablet, 0 Refills, Maintenance, 11/15/22 7:07:00 EDT, DIS Tablet, [facility] #[id number], Partial fill upon patient request if the prescription is for a schedule II... Start Date: 11/15/22 Stop Date: 11/18/22 Status: Ordered SUMAtriptan 50 mg oral tablet 1 tablet = 50 mg, By Mouth, Daily, PRN for migraine headache, may repeat dose after 2 hours up to amaximum of 2, # 9 tablet, 2 Refills, Maintenance, 03/31/22 12:26:00 EDT, [facility] #[id number], Partial fill upon patient request if the... [...] Exam Date Time Procedure Performing Provider Status 01/13/23 6:56 AM Chest 2 Views Frontal and Lat Carissa Park; Auth (Verified) Notes: (Chest 2 Views Frontal and Lat) Reason For Exam: Chest Pain;Other: RESULT: Chest 2 Views Frontal and Lat Chest 2 Views Frontal and Lat Hx of Present Illness: Began feeling sudden sharp chest pain and back pain that radiated towards right jaw along with numbness and tingling in right arm.; Reason: Other:; Chest Pain; Clinical Question(s): Other: COMPARISON: Chest radiograph 11/15/2022 FINDINGS: LINES AND TUBES: None. LUNGS AND PLEURA: Clear lungs. Normal pulmonary vascularity. No pleural effusion. No pneumothorax. HEART, MEDIASTINUM AND RENATO: Heart is normal in size. Normal mediastinal and hilar contour. BONES AND SOFT TISSUES: No acute abnormality. IMPRESSION: No radiographic evidence of an acute cardiopulmonary process. WSN: [id number] Ordering Physician: Charmaine Ferro Dictated By: Giudo Mayorga MD Dictated Date/Time: 01/13/23 7: am Reviewed By: Guido Mayorga MD Signed By: Guido Mayorga MD Signed Date/Time: 01/13/23 7: am Transcribed By: NAHUN Transcribed Date/Time: 01/13/23 7:26 am Vital Signs Most recent to oldest [Reference Range]: 1 2 3 Oxygen Saturation [94-100 %] 100 % (01/13/23 7:24 AM) 100 % (01/13/23 6:30 AM) Pulse Rate [55-90 bpm] 64 bpm (01/13/23 7:24 AM) 63 bpm (01/13/23 6:30 AM) Blood Pressure [90-138/55-84 mm Hg] 107/70mm Hg (01/13/23 7:24 AM) 105/63mm Hg (01/13/23 6:30 AM) 123/59mm Hg (01/13/23:23 AM) Respiratory Rate [16-30 br/min] 18 br/min (01/13/23 7:24 AM) 19 br/min (01/13/23 6:30 AM) Temperature [96.8-100.4 DegF] 97.7 DegF (01/13/23 6:30 AM) Mode of Delivery (Oxygen) Room air (01/13/23 7:24 AM) Room air (01/13/23 6:30 AM) Blood pressure sites Arm, right (01/13/23 7:24 AM) Arm, right (01/13/23 6:30 AM) Arm, right (01/13/23:23 AM) Temperature Route Oral (01/13/23 6:30 AM) EKG study * Event Display: ECG 12-Lead Authored Date: [id number] Please click on pdf link to open report * Event Display: ECG 12-Lead Authored Date: [id number] Ventricular Rate: 67 BPM Atrial Rate: 67 BPM P-R Interval: 148 ms QRS Duration: 86 ms Q-T Interval: 398 ms QTC Calculation(Bazett): 420 ms P [place]: 34 degrees R [place]: 39 degrees T [place]: 39 degrees Normal sinus rhythm Normal ECG When compared with ECG of 15-NOV-2022 03:12, No significant change was found Confirmed by FRANCISCA DAILY ([id number]) on 01/13/2023 10:54:56 AM [place]: FRANCISCA DAILY * Event Display: EKG Authored Date: [id number] Patient Care team information Care Team Personnel Name: Santo Louis RN Position: [facility] SN RN Member Role: Primary Care Nurse Name: Wil CASTREJON, Dante Robbins Position: Reference Physician Member Role: PCP Address: Address: [address] [place] [address]- Name: Eddy Cline Position: [facility] ED TA [facility] Name: Blanka RN, Carole Position: [facility] ED RN W/OE and Tasks Member Role: Patient Care Provider Name: Cortney Lane DO Position: [facility] Resident Member Role: ED Resident Address: Address: [address] [place] [address] [place] [address]- Care Team Related Persons Name: GERRY QUINTERO Address: [place] [address] Name: JAGDISH GAN Address: home [address] [place] [address] Name: EMORY RUDOLPH Address: home [address] [place] [address]
--- OUTSIDE RECORDS SUMMARY | 2023-03-23 06:00 | XMS_ITS | Continuity of Care Document ---
Author Name Unknown Organization [facility] Address Unknown Care Team Providers Care Iuss Analyst Name Role Phone Wil CASTREJON, Dante Robbins Primary Care Physician Encounter [facility] Date(s): 09/24/21 - 10/24/21 [facility] Attending Physician: Flory Benson Admitting Physician: Flory Benson Referring Physician: Flory Benson Allergies, Adverse Reactions, Alerts No Known Allergies [...] tablet, 5 Refills, Maintenance, 09/24/21 13:21:00 EDT, [facility] #[id number], Partial fill upon patient request if the [...]
--- OUTSIDE RECORDS SUMMARY | 2023-03-23 06:00 | XMS_ITS | Continuity of Care Document ---
Author Name Unknown Organization [facility] ter Address [address] [place] [address]- Care Team Providers Care Digital Designer Name Role Phone Wil CASTREJON, Dante Robbins Primary Care Physician Encounter [facility] Date(s): 06/22/21 - 06/23/[address] [address]- Encounter Diagnosis Otitis externa(Final) - 06/23/21 Discharge Disposition: A-D/C Home Attending Physician: Doreen Magdaleno DO Admitting Physician: Doreen Magdaleno DO Referring Physician: Not on Staff, Referring [...] Instructions Replace Required Details, Routeto Pharmacy Electronically, [id number]... Start Date: 06/23/21 Stop Date: 07/01/21 Status: Ordered ofloxacin 0.3% otic solution 5, drops, Ears, Both, 2 times a day, To affected ear only for 7 days, # 10 mL, Refills 0, Tot. Refills 0, Acute, 06/30/21 0:59:00 EST, 06/23/21 0:59:00 EST, Route to Pharmacy Electronically, [facility][id number] Solution, Partial fill upon pat... Start Date: [...] 3 Oxygen Saturation [94-100 %] 99 % (06/23/21 1:40 AM) 99 % (06/22/21 8:22 PM) 97 % (06/22/21 1:59 PM) Pulse Rate [55-90 bpm] 60 bpm (06/23/21 1:40 AM) 76 bpm (06/22/21 8:22 PM) 71 bpm (06/22/21 1:59 PM) Blood Pressure [90-138/55-84 mm Hg] 120/66mm Hg (06/23/21 1:40 AM) 111/72mm Hg (06/22/21 8:22 PM) 105/58mm Hg (06/22/21 1:59 PM) Respiratory Rate [16-30 br/min] 18 br/min (06/23/21 1:40 AM) 16 br/min (06/22/21 1:59 PM) 18 br/min (06/22/21 12:07 PM) Temperature [96.8-100.4 DegF] 98.5 DegF (06/22/21 8:22 PM) 98.8 DegF (06/22/21 1:59 PM) 98.5 DegF (06/22/21 12:07 PM) Mode of Delivery (Oxygen) Room air (06/23/21 1:40 AM) Room air (06/22/21 1:59 PM) Room air (06/22/21 12:07 PM) Blood pressure sites Arm, left (06/23/21 1:40 AM) Arm, right (06/22/21 8:22 PM) Arm, left (06/22/21 1:59 PM) Temperature Route Oral (06/23/21 1:40 AM) Oral (06/22/21 8:22 PM) Oral (06/22/21 1:59 PM)
--- OUTSIDE RECORDS SUMMARY | 2023-03-23 06:00 | XMS_ITS | Continuity of Care Document ---
Author Name Unknown Organization [facility] Address Unknown Care Team Providers Care Limb Driver Name Role Phone Wil CASTREJON, Dante Robbins Primary Care Physician Encounter [facility] [place] Date(s): 07/09/21 - 08/08/21 [facility] Allergies, Adverse Reactions, Alerts No Known Allergies Medications albuterol 90 mcg/inh inhalation powder 2 puffs, Inhalation, Every 4 hours, PRN as needed, # 1 each, 0 Refills, Maintenance, 05/31/18 2:39:02 EST, Powder Start Date: 05/31/18 Status: Ordered Depakote 250 mg oral enteric coated tablet 1 tablet = 250 mg, By Mouth, Daily in AM, # 30 tablet, 0 Refills, Maintenance, 07/29/21 10:35:00 EST, [facility] #[id number], Partial fill upon patient request if the prescription is for a schedule II opioid drug., 168, cm, 10/06/20 6:33:00 EDT,... Start Date: 07/29/21 Stop Date: 08/28/21 Status: Ordered Omeprazole By Mouth, Daily, 0 [...]
[2023-03-23 06:09] VITALS: BP 85/57; PULSE 65; RESP 17; TEMP 36.6
--- NOTE | 2023-03-23 06:40 | ED.GENADULT ---
HPI - General Adult General Chief complaint: General Medical Stated complaint: back pain Time Seen by Provider: 03/23/23 06:36 Source: patient Mode of arrival: ambulatory Limitations: no limitations History of Present Illness HPI narrative: Patient is a 42 year old assigned female at with no reported medical history presenting to the emergency department today with right sided low back pain that radiates into her right upper leg. Patient states that over the last few days she has right sided low back pain that radiates into the top of her right leg. Patient states that she saw her PCP who recommended exercises but nothing else. Patient denies any dizziness, lightheadedness, abdominal pain, nausea, vomiting, fever, chills, blurry vision, double vision, loss of vision, chest pain, difficulty breathing, shortness of breath, night sweats, pain with urination, increased urinary frequency, increased urinary urgency, blood in her urine or stool, syncope or a near syncopal episode, recent trauma or falls, bowel incontinence, bladder incontinence, bowel retention, bladder retention, or any other complaints at this time. Onset (ago): day(s) Location: back and right Radiation: extremity Severity: mild Severity scale (1-10): 4 Quality: dull Pain Consistency: intermittent Relieving factors: none Exacerbating factors: none Associated symptoms: denies other symptoms Treatments prior to arrival: none Related Data Previous Rx's Medication Instructions Recorded cyclobenzaprine 5 mg tablet 5 mg PO TID PRN low back pain 7 03/23/23 days #21 tabs naproxen 500 mg tablet 500 mg PO BID 7 days #14 tabs 03/23/23 Allergies Allergy/AdvReac Type Severity Reaction Status Date / Time ribavirin [From Moderiba] Allergy Hives Verified 03/23/23 03:41 Review of Systems Constitutional: Constitutional: Reports no additional constitutional complaints, Denies chills, Denies fever(s) and Denies night sweats Eyes: Eyes: Reports no additional eye complaints, Denies blurry vision, Denies change in vision, Denies diplopia, Denies eye discharge, Denies loss of vision and Denies eye pain ENT: Denies dizziness Cardiovascular: Cardiovascular: Reports no additional cardiovascular complaints, Denies chest pain, Denies lightheadedness, Denies Loss of Consciousness and Denies dyspnea Respiratory: Respiratory: Reports no additional respiratory complaints and Denies dyspnea Gastrointestinal: Gastrointestinal: Reports no additional gastrointestinal complaints, Denies abdominal pain, Denies melena, Denies hematochezia, Denies change in bowel habits and Denies change in stool character Genitourinary: Genitourinary: Denies hematuria, Denies urinary frequency, Denies dysuria, Denies urinary incontinence, Denies urinary hesitancy and Denies urinary urgency Musculoskeletal: Musculoskeletal: Reports no additional musculoskeletal complaints, Denies numbness and Denies tingling Comments: right sided low back pain Neurologic: Denies dizziness, Denies loss of vision, Denies numbness and Denies tingling Psychiatric: Psychiatric: Reports no additional psychiatric complaints Endocrine: Endocrine: Reports no additional endocrine complaints Hematologic/Lymphatic: Hematologic/Lymphatic: Reports no additional hematologic/lymphatic complaints Allergic/Immunologic: Allergic/Immunologic: Reports no additional allergic/immunologic complaints PMFSH Past Medical History Attestation statement: The following information was validated with the patient. Source: old records reviewed and nursing notes reviewed Social History Social History Unable to assess alcohol history related to: Unknown Smoked in Last 30 Days: No Advance Directives: No Advance Directives Information Provided: No Patient : No Physical Exam ED Vital Signs: Vital Signs - 24 hr 03/23/23 03:37 03/23/23 06:09 03/23/23 07:11 Temperature 97.5 F 97.9 F Pulse Rate 69 65 66 Respiratory Rate 16 17 18 Blood Pressure 98/55 L 85/57 L 101/53 L Pulse Oximetry 99 99 Oxygen Delivery Method Room Air Room Air Room Air BMI result Body Mass Index 42.1 Const General: cooperative, no acute distress, alert and awake Nutritional Appearance: well nourished Orientation/consciousness: patient oriented x3 Limitations: no limitations [facility] Head: Yes normal to inspection and Yes atraumatic Ears: hearing grossly normal bilaterally and external ears normal General nose exam: Normal external nose present, no nasal discharge noted and no epistaxis Face and sinus: Yes normal facial exam, No abrasion and No laceration Mouth: Normal oral and palatal mucosa present, no drooling and no muffled voice Eyes General: appearance normal, both eyes and all related structures Periorbital: periorbital findings normal Eyelids: Yes eyelids normal Conjunctivae: conjunctivae normal Pupils: Equal, round and reactive pupils present EOM: EOMs intact bilaterally Neck Neck: Yes normal visual inspection, Yes full ROM and Yes no lymphadenopathy Chest Chest palpation & inspection: normal inspection of the chest Resp Effort & Inspection: normal respiratory effort and able to speak in complete sentences GI Inspection: Yes normal to inspection General: Yes no CVA tenderness Back/Spine/Pelvis Back: no CVA tenderness Cervical Spine: normal cervical lordosis and cervical ROM normal Thoracic/Lumbar Spine: thoracic and lumbar spine normal to inspection and thoraco-lumbar ROM normal Pelvis: no pain with anterior-posterior compression Neuro General: patient oriented x3 and moves all extremities Cranial nerves: Yes Equal, round and reactive pupils present Cognition (Neuro): normal cognition Motor exam (neuro): 5/5 motor strength present throughout Sensory Exam: Normal double simultaneous stimulation for sensation Coordination: [id number] test normal Extrem General: Yes normal to inspection, Yes full ROM and Yes capillary refill normal Psych Appearance: grossly normal Mental Status: mental status grossly normal Affect: normal affect Attitude: cooperative Thought process: Normal thought process present Thought content: Normal thought content present Insight: Good insight present (Psych) Medical Decision Making Medical Decision Making MDM Narrative: Patient is a 42 year old assigned female at with no reported medical history presenting to the emergency department today with right sided low back pain. Patient's physical exam was unremarkable. Patient's blood work was unremarkable. Patient's urine showed no acute process. I explained my physical exam findings as well as all test results to the patient. I answered all questions asked by the patient. Patient received PO Flexeirl and IM Toradol which she stated helped her symptoms significantly. I stressed the importance of the patient taking her medication as prescribed. I stressed the importance of the patient following up with her primary care provider. I stressed the importance of the patient returning to the emergency department immediately if her symptoms were to worsen or if she were to develop any dizziness, shortness of breath, difficulty breathing, chest pain, blurry vision, loss of vision, nausea, vomiting, abdominal pain, fever, chills, back pain, or any other complaints. Patient verbalized agreement and understanding with this treatment plan and discharge. Differential Diagnosis Differential Diagnoses: The differential diagnosis associated with the presentation includes Lumbar radiculopathy Sciatica Low back pain Admission/Observation Consideration of admission/observation: Escalation of care including admission/observation considered Patient would have been admitted to the hospital had her work up had any findings where hospital admission was appropriate and her clinical presentation warranted hospital admission. Lab Data MDM Lab Attestation statement: I reviewed the patient's lab results. My interpretation of these studies and their corresponding values is that they are grossly normal. 03/23/23 03:33 03/23/23 03:33 Labs: Lab Results 03/23/23 03/23/23 Range/Units 03:33 03:38 WBC 6.6 (4.8-10.8) X10*3/uL RBC 4.19 L (4.20-5.50) X10*6/uL Hgb 12.0 (12.0-16.0) g/dl Hct 36.4 L (37.0-47.0) % MCV 86.9 (80.0-98.0) fL MCH 28.6 (27.0-33.0) pg MCHC 33.0 (31.0-35.0) g/dl RDW 14.0 (11.0-16.0) % Plt Count 221 (160-400) X10*3/uL MPV 11.0 (9.4-12.3) fL Absolute Nucleated RBC 0.000 (0.0-0.012) X10*3/uL Nucleated RBC % (auto) 0.0 (0.0-0.2) /100WBC Sodium 139 (135-145) mmol/L Potassium 4.1 (3.3-5.1) mmol/L Chloride 111 H (96-108) mmol/L Carbon Dioxide 22 (22-29) mmol/L Anion Gap 10 L (12-20) BUN 16 (9-16) mg/dL Creatinine 0.70 (0.5-1.4) mg/dL Estim Creat Clear Calc 135.7 Estimated GFR > 60 Random Glucose 80 (60-115) mg/dL Calcium 8.7 (8.4-10.2) mg/dL Total Bilirubin 0.2 (0.0-1.0) mg/dL AST 17 (5-31) U/L ALT 15 (0-31) U/L Alkaline Phosphatase 90 (39-117) U/L Total Protein 6.5 (6.5-8.0) g/dL Albumin 3.8 (3.5-5.0) g/dL Lipase 21 (8-78) U/L Urine Color Dark Yellow Urine Appearance Clear Urine pH 5.5 (5.0-9.0) Ur Specific [place] >= 1.030 H (1.005-1.025) Urine Protein Trace (Neg-Trace) mg/dL Urine Glucose (UA) Negative (Negative) mg/dL Urine Ketones Trace (Negative) mg/dL Urine Blood Negative (Negative) Urine Nitrite Negative (Negative) Ur Leukocyte Esterase Small (1+) H (Negative) Urine RBC 0-2 (0-2) /HPF Urine WBC 0-5 (0-5) /HPF Ur Squamous Epith Cells 0-2 (0-2) /HPF Urine Bacteria None Seen (None Seen) Hyaline Casts 0-2 (0-2) /LPF Prescription Management I considered prescription management with: Pain Medication (patient prescribed pain medicaiton) Discharge Plan Discharge Clinical Impression: Lumbar radiculopathy Patient Disposition: Home, Self-Care Instructions: Lumbar Radiculopathy (ED) Additional Instructions: Follow up with your primary care provider. Return to the emergency department immediately if your symptoms worsen or if you develop any dizziness, shortness of breath, difficulty breathing, chest pain, blurry vision, loss of vision, nausea, vomiting, abdominal pain, fever, chills, back pain, or any other complaints. Prescriptions: New cyclobenzaprine 5 mg tablet 5 mg PO TID PRN (Reason: low back pain) 7 Days Qty: 21 0RF naproxen 500 mg tablet 500 mg PO BID 7 Days Qty: 14 0RF Ref[place]: [facility] [place] Group] (Call to establish and follow up with a primary care provider. If you already have a primary care provider, please follow up with them.) [facility] [place] Care[place] [Provider Group] (Call to establish and follow up with a primary care provider. If you already have a primary care provider, please follow up with them.) [facility] [place],Daniel [Provider Group] (Call to establish and follow up with a primary care provider. If you already have a primary care provider, please follow up with them.) Stand Alone Forms: Work/School Release Print Language: Estonian
[2023-03-23 07:11] VITALS: BP 101/53; PULSE 66; RESP 18; O2SAT 99
[2023-03-23] MEDS: Ketorolac Tromethamine 15 MG/ML VIAL IM (07:47)
[2023-03-23] MEDS: Cyclobenzaprine HCl 5 MG TABLET PO (07:47)
== END 2023-03-23 07:50 | disposition home or self-care (01) ==
PROVIDERS: Emergency Provider Emergency Medicine
DX: M54.16 Radiculopathy, lumbar region (principal); M54.50 Low back pain, unspecified; M79.604 Pain in right leg; Z79.899 Other long term (current) drug therapy
CPT/HCPCS: 36415; 80053; 81001; 83690; 85027; 87086; 96372; 99284; J1885

== ENCOUNTER 2023-07-28 21:47 | Emergency (ER) | payer SELFPAY ==
--- NOTE | 2023-07-28 | ECG_ITS ---
Test Reason : CHEST PAIN Blood Pressure : / mmHG Vent. Rate : 081 BPM Atrial Rate : 081 BPM P-R Int : 150 ms QRS Dur : 090 ms QT Int : 408 ms P-R-T Axes : 034 015 034 degrees QTc Int : 473 ms Normal sinus rhythm Nonspecific ST and T wave abnormality Borderline ECG When compared with ECG of 28-JUL-2023 21:53, No significant change was found Referred By: Monty Cannon Electronically Signed By:ANCA ALDRICH
--- NOTE | ~2023-07-28 | XR_ITS ---
EXAMINATION: XR CHEST CLINICAL INFORMATION: Chest pain COMPARISON: None available. TECHNIQUE: 2 views of the chest were obtained. FINDINGS: No significant abnormality is noted involving the heart, lungs, mediastinum, bony thorax or soft tissues. XR/XR chest 2V IMPRESSION: Unremarkable chest examination.
--- NOTE | 2023-07-28 21:57 | MHC.EDTECH ---
PATIENT EKG TAKEN AT 2153
[2023-07-28 22:00] VITALS: BP 148/80; PULSE 80; RESP 18; TEMP 36.6; O2SAT 99; BMI 35.0
[2023-07-28 22:30] LABS: MANUAL DIFF FLAG NO
[2023-07-28 22:32] LABS: Basophils Percent Auto 0.2 % (0-2); Eosinophils Percent Auto 0.1 % (0-4); Hematocrit 39.6 % (37.0-47.0); Hemoglobin 13.2 g/dl (12.0-16.0); Imm Gran Abs Auto 0.02 X10*3/uL (0.00-0.03); Imm Gran Pct Auto 0.2 % (0.0-0.4); Lymphocytes Absolute Auto 1.6 X10*3/uL (1.2-4.9); Lymphocytes Percent Auto 17.8 % (20-40); Mean Corpuscular HGB Conc 33.3 g/dl (31.0-35.0); Mean Corpuscular Hemoglobin 28.8 pg (27.0-33.0); Mean Corpuscular Volume 86.3 fL (80.0-98.0); Mean Platelet Volume 10.9 fL (9.4-12.3); Monocytes Absolute Auto 0.8 X10*3/uL (0.1-1.2); Monocytes Percent Auto 9.4 % (2-11); Neutrophils Absolute Auto 6.3 x10*3/uL (2.0-8.3); Neutrophils Percent Auto 72.3 % (45-73); Platelet Count 208 X10*3/uL (160-400); Red Blood Count 4.59 X10*6/uL (4.20-5.50); Red Cell Distribution Width 14.1 % (11.0-16.0); White Blood Count 8.7 X10*3/uL (4.8-10.8)
[2023-07-28 22:46] LABS: Alanine Aminotransferase 18 U/L (0-31); Albumin Level 4.2 g/dL (3.5-5.0); Alkaline Phosphatase 104 U/L (39-117); Anion Gap 15 (12-20); Aspartate Amino Transferase 17 U/L (5-31); Bilirubin Total 0.7 mg/dL (0.0-1.0); Blood Urea Nitrogen 10 mg/dL (9-16); Calcium 9.4 mg/dL (8.4-10.2); Carbon Dioxide 21 mmol/L (22-29); Chloride 104 mmol/L (96-108); Creatinine Clr Calc Pharmacy 136.3; Estimated Glomerular Filt Rate > 60; Glucose Random 96 mg/dL (60-115); Potassium 3.6 mmol/L (3.3-5.1); Sodium 136 mmol/L (135-145); Total Protein 7.4 g/dL (6.5-8.0)
[2023-07-28 22:54] LABS: Troponin-I High Sensitivity < 2.7 ng/L (<3.5-17.0)
--- NOTE | 2023-07-28 23:33 | PC.NURSE ---
called pt from waiting room at 9650, no answer
--- NOTE | 2023-07-28 23:51 | ED_ITS ---
HPI - Chest Pain General Chief Complaint: Chest Pain Stated Complaint: chest pain Time Seen by Provider: 07/28/23 23:51 Source: patient Mode of arrival: ambulatory Limitations: no limitations History of Present Illness HPI narrative: 42-year-old female came in for evaluation of chest pain started at 17:00 after smoked cocaine for the 1st time in her life that was offered by her friend. Pain still persistent, felt nauseous but no vomiting. Pain has no radiation localized to the left side of the chest, declined using recreational drug at a regular basis. Related Data Previous Rx's Medication Instructions Recorded cyclobenzaprine 5 mg tablet 5 mg PO TID PRN low back pain 7 03/23/23 days #21 tabs naproxen 500 mg tablet 500 mg PO BID 7 days #14 tabs 03/23/23 Allergies Allergy/AdvReac Type Severity Reaction Status Date / Time ribavirin [From Moderiba] Allergy Hives Verified 04/12/23 11:52 Review of Systems 2 Review of Systems: All other systems are reviewed and are negative Constitutional: Reports as per HPI and Reports no additional constitutional complaints Eyes: Reports as per HPI and Reports no additional eye complaints Reports system reviewed and no additional complaints, except as documented Cardiovascular: Reports as per HPI and Reports no additional cardiovascular complaints Respiratory: Reports as per HPI and Reports no additional respiratory complaints Gastrointestinal: Reports as per HPI and Reports no additional gastrointestinal complaints Genitourinary: Reports no additional female genitourinary complaints Musculoskeletal: Reports no additional musculoskeletal complaints Skin/Breast: Reports system reviewed and no additional complaints, except as docu Psychiatric: Reports no additional psychiatric complaints Endocrine: Reports no additional endocrine complaints Hematologic/Lymphatic: Reports no additional hematologic/lymphatic complaints Allergic/Immunologic: Reports no additional allergic/immunologic complaints Reports system reviewed and no additional complaints, except as documented and Reports Abnormal speech present [facility] Social History Social History Unable to assess alcohol history related to: Refusing to respond Smoked in Last 30 Days: No Use of substances other than those prescribed or required for medical reasons: Refusing to respond Advance Directives: No Advance Directives Information Provided: No Patient : No Physical Exam 2 Vital Signs: Vital Signs: Last Vital Signs Temp 98.1 F 07/29/23 03:06 Pulse 85 07/29/23 03:06 Resp 16 07/29/23 03:06 BP 107/62 07/29/23 03:06 Pulse Ox 95 07/29/23 03:06 O2 Del Method Room Air 07/29/23 03:06 BMI result Body Mass Index 35.0 Vital signs have been reviewed and appear to be correct. Blood pressure elevated. Heart rate normal. Respiratory rate normal. Temperature normal. Oxygen saturation normal. Appearance: Alert. Oriented X3. No acute distress. Head: Normal external exam. Normocephalic. Atraumatic. No Pagan signs noted. No raccoon eyes noted Eyes: PERRLA. EOMI. Conjunctiva and sclera normal. Eyelids normal. ENT: TM's Normal. Pharynx normal. Uvula midline. Moist mucous membranes. No trismus noted. No drooling noted. No muffled voice noted. Neck: Normal inspection. Neck supple. FROM. No adenopathy. Thyroid Normal. No meningeal signs. No neck mass noted. CVS: Normal heart rate and rhythm. Heart sound normal. No murmurs noted. Pulses normal throughout. Respiratory: No respiratory distress. Painless inspiration. Breath sounds normal. No wheezes/rales/rhonchi noted. Chest nontender. No accessory muscle usage noted or decreased air movement noted. Abdomen: Soft and nontender. Bowel sounds normal in all 4 quadrants. No distention noted. No organomegaly noted. No visible injury noted. Back: No CVA tenderness. Full range of motion noted. Skin: Skin warm and dry. Normal skin color. Normal skin turgor. No rashes/lesions/lacerations noted. Extremities: No lower extremity edema. Extremities exhibit normal range of motion. Extremities nontender. Neuro: Oriented X 3. Cranial nerve exam: II-XII are grossly intact No motor deficit. No sensory deficit. Reflexes normal. Course Reevaluation(s) Reevaluation #1: A 42-year-old female came in complaining of chest pain after smoked cocaine for the 1st time in her life, no ST-T changes on the EKG, negative troponin, patient now is chest pain-free. Time: 03:47 Medical Decision Making Differential Diagnosis Differential Diagnoses: The differential diagnosis associated with the presentation includes (ACS, cocaine induced CT, pleural effusion, pneumonia, electrolyte abnormality, severe anemia.) Admission/Observation Consideration of admission/observation: Escalation of care including admission/observation considered Lab Data MDM Lab Attestation statement: I reviewed the patient's lab results. 07/28/23 22:26 07/28/23 22:26 Labs: Lab Results 07/28/23 07/29/23 Range/Units 22:26 01:55 WBC 8.7 (4.8-10.8) X10*3/uL RBC 4.59 (4.20-5.50) X10*6/uL Hgb 13.2 (12.0-16.0) g/dl Hct 39.6 (37.0-47.0) % MCV 86.3 (80.0-98.0) fL MCH 28.8 (27.0-33.0) pg MCHC 33.3 (31.0-35.0) g/dl RDW 14.1 (11.0-16.0) % Plt Count 208 (160-400) X10*3/uL MPV 10.9 (9.4-12.3) fL Immature Gran % (Auto) 0.2 (0.0-0.4) % Neut % (Auto) 72.3 (45-73) % Lymph % (Auto) 17.8 L (20-40) % [place] % (Auto) 9.4 (2-11) % Eos % (Auto) 0.1 (0-4) % Baso % (Auto) 0.2 (0-2) % Lymph # (Auto) 1.6 (1.2-4.9) X10*3/uL [place] # (Auto) 0.8 (0.1-1.2) X10*3/uL Eos # (Auto) 0.0 (0.0-0.4) X10*3/uL Baso # (Auto) 0.0 (0.0-0.2) X10*3/uL Abs Immat Gran (auto) 0.02 (0.00-0.03) X10*3/uL Absolute Neuts (auto) 6.3 (2.0-8.3) x10*3/uL Absolute Nucleated RBC 0.000 (0.0-0.012) X10*3/uL Nucleated RBC % (auto) 0.0 (0.0-0.2) /100WBC Sodium 136 (135-145) mmol/L Potassium 3.6 (3.3-5.1) mmol/L Chloride 104 (96-108) mmol/L Carbon Dioxide 21 L (22-29) mmol/L Anion Gap 15 (12-20) BUN 10 (9-16) mg/dL Creatinine 0.63 (0.5-1.4) mg/dL Estim Creat Clear Calc 136.3 Estimated GFR > 60 Random Glucose 96 (60-115) mg/dL Calcium 9.4 D (8.4-10.2) mg/dL Total Bilirubin 0.7 (0.0-1.0) mg/dL AST 17 (5-31) U/L ALT 18 (0-31) U/L Alkaline Phosphatase 104 (39-117) U/L Troponin I High Sens < 2.7 < 2.7 (<3.5-17.0) ng/L Total Protein 7.4 (6.5-8.0) g/dL Albumin 4.2 (3.5-5.0) g/dL Independent Interpretation I performed an independent interpretation of an: Plain X-Ray (Chest: No acute intrathoracic pathology.) Radiology Impression Discussion of test interpretation with radiology: I have reviewed the radiologist's reading. Discharge Plan Discharge Clinical Impression: Chest pain, Cocaine use Patient Disposition: Home, Self-Care Instructions: Chest Pain (ED), Cocaine Abuse (ED) Prescriptions: No Action cyclobenzaprine 5 mg tablet 5 mg PO TID PRN (Reason: low back pain) 7 Days Qty: 21 0RF naproxen 500 mg tablet 500 mg PO BID 7 Days Qty: 14 0RF
--- NOTE | 2023-07-29 | ECG_ITS ---
Test Reason : CHEST PAIN Blood Pressure : / mmHG Vent. Rate : 084 BPM Atrial Rate : 084 BPM P-R Int : 150 ms QRS Dur : 090 ms QT Int : 396 ms P-R-T Axes : 027 008 034 degrees QTc Int : 467 ms Normal sinus rhythm Normal ECG No previous ECGs available Referred By: Monty Cannon Electronically Signed By:ANCA ALDRICH
[2023-07-29 02:25] LABS: Troponin-I High Sensitivity < 2.7 ng/L (<3.5-17.0)
[2023-07-29 03:06] VITALS: BP 107/62; PULSE 85; RESP 16; TEMP 36.7; O2SAT 95
== END 2023-07-29 06:52 | disposition home or self-care (01) ==
PROVIDERS: Emergency Provider Emergency Medicine
DX: R07.89 Other chest pain (principal); R11.0 Nausea; F14.10 Cocaine abuse, uncomplicated; Z79.899 Other long term (current) drug therapy
CPT/HCPCS: 36415; 71046; 80053; 84484; 85025; 93005; 99283; 99285

== ENCOUNTER → 2023-07-28 21:47 | Outpatient (BNV) | payer SELFPAY | PROVIDERS: Emergency Provider Emergency Medicine; Visit Provider Internal Medicine | DX: R07.9 Chest pain, unspecified (principal) | CPT/HCPCS: 93010 ==

== ENCOUNTER → 2023-07-29 | Outpatient (BNV) | payer SELFPAY | PROVIDERS: Emergency Provider Emergency Medicine; Visit Provider Internal Medicine | DX: R07.9 Chest pain, unspecified (principal) | CPT/HCPCS: 93010 ==